=== PATIENT | female | born 1940 | race Caucasian/White ===

== ENCOUNTER → 2016-06-21 | Outpatient (CLI) | payer MEDICARE, OTHER ==
[~2016-06-21] MED LIST: AMLODIPINE BES2.5 MG PO; ASPIRIN EC81 MG PO; COLACE100 MG PO; COMBIVENT RESPIM4 GM INH; COZAAR50 MG PO; DECADRON4 MG PO; DILANTIN100 MG; DILANTIN100 MG PO; DILTIAZEM 24HR180 MG PO; DUONEB INH; EFFEXOR75 MG PO; FLONASE 50 MCG/16 GM NOSE; IMDUR30 MG PO; LASIX20 MG PO; LIPITOR20 M1 PO; LOVENOX 6060 MG/0.6 SUB-Q; MEGACE SUSP40 MG/ML PO; NITROSTAT0.4 MG SL; NORCO 5-325 MG1 TAB PO; ONDANSETRON ODT8 MG PO; OXYGEN M-15 INH; PLAVIX75 MG PO; PRILOSEC20 MG PO; PRINIVIL (ZESTRI5 MG PO; PROTONIX40 MG PO; REGLAN5 MG PO; TRANSDERM SCOP1.5 MG TRANS; TYLENOL325 MG PO; ULTRAM50 MG PO
== END | disposition disaster alternative care site (69) ==
LOC: GRAD 09:51
DX: R26.9 Unspecified abnormalities of gait and mobility (principal); R20.0 Anesthesia of skin; R53.1 Weakness; Z85.3 Personal history of malignant neoplasm of breast; K76.0 Fatty (change of) liver, not elsewhere classified; C78.7 Secondary malignant neoplasm of liver and intrahepatic bile duct; Z98.890 Other specified postprocedural states
CPT/HCPCS: Q9967

== ENCOUNTER 2016-06-28 04:53 | Inpatient (IN) | payer MEDICARE, OTHER ==
[~2016-06-28] VITALS: Ht 157.5 cm; Wt 64.0 kg
--- NOTE | ~2016-06-28 | ER ---
PATIENT'S NAME: DEZ SALDAÑA [facility] AGE: 75 Y [address] ROOM: [address] [place], [place] [address] LOCATION: [facility] ADMIT DATE: 06/28/2016 ER/Outpatient Report DISCHARGE DATE: FAMILY PHYSICIAN: Ang Dickens MD ATTENDING PHYSICIAN: Ang Dickens Admission time and date documented on the medical record. I saw the patient at 0455 hours. CHIEF COMPLAINT: Acute seizure activity first-time seizure; history of metastatic breast cancer to liver, lungs, brain. HISTORY OF PRESENT ILLNESS: The patient is a 75-year-old female who got up to the bathroom this morning about an hour prior to admission into the emergency room and had acute onset of seizure activity. Initially had some jerking of her right arm that turned into tonic-clonic activity of all 4 extremities. 911 EMS crew was dispatched. They brought the patient into the emergency room for evaluation by ambulance. On arrival, the patient was actively seizing. She was given Ativan 1 mg IV followed by repeat dose of 1 mg Ativan IV. We did go ahead and order some Dilantin 1000 mg IV for loading dose for her seizure activity. Seizure is most likely secondary to her metastatic lesions in her brain from her breast cancer. The patient was found to have metastatic brain lesions on scan. She was initially started on dexamethasone 4 mg 4 times a day and remains on this. She is scheduled to do radiation therapy of the brain starting today. She has undergone radiation therapy and chemotherapy for metastatic disease to her lungs and liver from her breast cancer. The patient had a partial mastectomy and lumpectomy of the left breast lesion that was adenocarcinoma. No recent coughs, colds, flus, fever, chills or sweats. Did not feel good all day yesterday and also had some severe headache throughout the day. She had some nausea with vomiting. No diarrhea. No cough or respiratory distress. No abdominal pain. No urinary symptoms. No history of CVA, TIA, or previous seizure disorder. No endocrine problems. No psych issues. She was a little bit unsteady on her feet yesterday, lightheaded and dizzy. No syncope or near syncope. No fall or trauma. As stated above, she did have a generalized headache. No eyes, ears, nose, throat, neck, or spine pain. HOME MEDICATIONS: See attached medication list. ALLERGIES: NONE. SOCIAL HISTORY: PATIENT'S NAME: DEZ SALDAÑA [facility] AGE: 75 Y [address] ROOM: [id number] [place], [place] [address] LOCATION: [facility] ADMIT DATE: 06/28/2016 ER/Outpatient Report DISCHARGE DATE: FAMILY PHYSICIAN: Ang Dickens MD ATTENDING PHYSICIAN: Ang Dickens Nonsmoker since 2007. Nondrinker. 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 OPERATIONS: Left breast partial mastectomy, lumpectomy, lung resection, cardiac catheterization, femoral-popliteal bypass bilaterally x2, radiation therapy, chemotherapy. REVIEW OF SYSTEMS: All systems reviewed by me are negative with the exception of those discussed in the history of present illness. PHYSICAL EXAMINATION: VITAL SIGNS: Temperature 97.9 tympanic, pulse 154 regular, respirations 36, blood pressure 207/103, O2 saturation on 4 L of oxygen per nasal cannula was 99%. HEAD: Normocephalic. EYES EARS, NOSE, AND THROAT: Clear. Mucous membranes moist. NECK: Negative. LUNGS: Clear. Good air flow. No rales, rhonchi, or wheezes. HEART: Regular. Pulses are palpable. ABDOMEN: Soft, nontender. Good bowel tones. No organomegaly or abnormal mass palpable. EXTREMITIES: The patient had a little twitching in her right arm, but no peripheral edema, cyanosis, or deformity. NEURO: The patient is a little bit postictal. No lateralizing signs. LABORATORY DATA: Lactate was 10.4, white count was [address], 88 segs, 5 lymphs, 5 monos, hemoglobin 15.5, hematocrit 44.6, platelet count 128,000. CMS, CRP, procalcitonin, CPK, CK-MB, troponin, PT, PTT and prolactin are pending. IMAGING: CT scan of the head was obtained, results pending. EMERGENCY DEPARTMENT COURSE: Again, I did give the patient Dilantin 1000 mg IV loading dose. I also gave the patient a total of 2 mg of Ativan IV. Discussed. IMPRESSION: PATIENT'S NAME: PIOTR, SUSIE [facility] AGE: 75 Y [address] ROOM: [address] [address] LOCATION: [facility] ADMIT DATE: 06/28/2016 ER/Outpatient Report DISCHARGE DATE: FAMILY PHYSICIAN: Ang Dickens MD ATTENDING PHYSICIAN: Ang Dickens 1. Acute seizure activity first time, etiology uncertain, but most likely secondary to metastatic disease of the brain from left breast cancer. The patient has known METS to the brain, liver and lungs. 2. History of atherosclerotic ischemic heart disease with coronary artery disease. 3. History of peripheral vascular disease. 4. History of hypertension. 5. History of dyslipidemia. 6. History of chronic obstructive pulmonary disease. PLAN: I did discuss the patient with Dr. Bailey for Dr. Dickens. We will admit the patient to neurotrauma for further evaluation and treatment. As stated above, the patient is scheduled to have her first radiation therapy to the brain today. Again, we will initiate antiseizure medication Dilantin IV. Accumulated critical care time 30 minutes. MD WEI PRATER/modl /[id number] d: 06/28/16 0637 t: 06/28/16 1815, OUTPATIENT REPORT
--- NOTE | ~2016-06-28 | DS ---
PATIENT'S NAME: DEZ SALDAÑA [facility] AGE: 75 Y [address] ROOM: [address] [place], [place] [address] LOCATION: [facility] ADMIT DATE: 06/28/2016 Discharge Summary DISCHARGE DATE: 07/02/2016 FAMILY PHYSICIAN: Ang Dickens MD ATTENDING PHYSICIAN: Ang Dickens BRIEF HISTORY: This is a 75-year-old white female with known metastatic disease likely from breast to liver, lung, and mets to the brain. Status post chemotherapy and radiation. She is admitted with new-onset seizures. She was admitted to the hospital after new-onset seizures. She has been having increasing headache and right-sided weakness with some ataxia. She was admitted to the hospital by Dr. Bailey and had consultation with Oncology. She was started on IV Decadron as well as Dilantin by Neurology. Radiation Therapy was begun as well. Over next couple of days, she started to improve. Seizures were well-controlled. Her blood pressure was elevated however. Adjustment to her medications were undertaken. Dr. Jones was consulted for possible inpatient rehab stay. DuoNeb was used for her lung disease. Because of elevated blood sugars and the Decadron, sliding-scale insulin was began. She subsequently was able to be discharged to inpatient rehab on 07/02/2016. DISCHARGE DIAGNOSES: Include breast cancer with widespread mets including brain with new-onset seizure. She will be transferred to rehab and cared for by Dr. Jones and continued with radiation therapy. Dr. Jones, Florencia, and myself to follow. ANG DICKENS MD TLP/modl /[id number] d: 07/27/16608 t: 08/19/16 0834, DISCHARGE SUMMARY
--- NOTE | ~2016-06-28 | CON ---
PATIENT'S NAME: DEZ SALDAÑA [facility] AGE: 75 Y [address] ROOM: [address] [place], [place] [address] LOCATION: T ADMIT DATE: 06/28/2016 Consultation DISCHARGE DATE: FAMILY PHYSICIAN: Ang Dickens MD ATTENDING PHYSICIAN: Ang Dickens DATE OF CONSULTATION: 06/28/2016 REFERRING PHYSICIAN: Madhavi Don MD, PhD TIME: 8:00 p.m. HISTORY OF PRESENT ILLNESS: This is a 75-year-old female patient, who came into the emergency room early this morning. She has an unfortunate history of metastatic breast cancer to liver and lung and now recently diagnosed in March of this year to the brain where she was noted to have multiple brain lesions. She never had a seizure until last night when she went to the bathroom and started having some right arm jerking followed by tonic-clonic seizure activity. She came to the emergency room actively seizing and was given a benzodiazepine and upon my request, I ordered for load of Dilantin 1 g followed by 100 mg 3 times a day. The patient is currently seen on the neuro trauma unit and has not had any active seizures. She is speaking to me and following all commands. Her family was in the room and they say that she has been doing well during the course of the day. The patient herself says that she does have a fairly severe headache that has been ongoing for about 2 days. She is noted to have some weakness in her right upper extremity unable to give me full power, but she is able to elevate her arm above the bed with some noted pronation of the right upper extremity. Her speech was clear, though her says that at time she does have some slurring of her speech. PAST MEDICAL HISTORY: As noted, she does have a diagnosis of a left breast cancer that initially started as an infiltrating ductal carcinoma in June of 2015 upon a breast lumpectomy. She is status post radiation and chemotherapy that was completed in February 2016. A brain scan was performed in March 2016, which was done due to the patient having some progressive weakness in the right upper extremity. Initially, it showed evidence for metastatic lesions and she was started on Decadron at that time. She had been doing fairly well, but over the past 2 weeks, she has been having some more weakness than usual. Her other prior medical history includes hypertension, non-small cell lung cancer diagnosed from a right upper lobe biopsy and status post resection, this was diagnosed initially back in 2007. She was a heavy smoker of 2 packs a day for nearly 50 years. She quit upon her diagnosis in 2007. PATIENT'S NAME: DEZ SALDAÑA [facility] AGE: 75 Y [address] ROOM: [place] [address] LOCATION: [facility] ADMIT DATE: 06/28/2016 Consultation DISCHARGE DATE: FAMILY PHYSICIAN: Ang Dickens MD ATTENDING PHYSICIAN: Ang Dickens PAST SURGICAL HISTORY: Included thoracotomy with resection of the right upper lobe back in 2007, partial hysterectomy, tonsillectomy, appendectomy, and left core breast biopsy in June 2015. CURRENT HOME MEDICATIONS: Included: 1. Aspirin 81 mg daily. 2. Decadron was being given at 4 mg 4 times a day. 3. Plavix 75 mg daily. 4. Prilosec 20 mg daily. ALLERGIES: NO KNOWN DRUG ALLERGIES. SOCIAL HISTORY: She was a heavy smoker of 2 packs a day x50 years, then she quit in 2007. She is and does not work presently. REVIEW OF SYSTEMS: Neurologically, the patient presents with some progressive weakness over the past 3 months of right upper extremity weakness. She presented with focal right on arm jerking followed by generalized seizure last evening. Taken to the emergency room and loaded on antiepileptic medications. She is currently doing fairly well, but does have some noted weakness in the right upper extremity. She also is complaining about a headache, though she continues to receive Tylenol p.r.n. for her pain. Oncologically, as noted history of metastatic cancer to liver and to the brain and a history of lung cancer. LABORATORY DATA: Laboratories are consistent are showing elevations in liver enzymes to 169 AST, 258 ALT, and alkaline phosphatase is normal at 117. Basic metabolic panel essentially within normal limits. There is a slight elevation in white count to 11.4. CPKs are within normal limits. PHYSICAL EXAMINATION: GENERAL: The patient is alert and oriented. I did not appreciate any aphasia. Her speech is clear. I do not hear any slurring of her speech. VITAL SIGNS: Pulse of 91 and regular, respiratory rate 24, blood pressure 121/59, and temperature is 97.8. Her weight is 63 kg. CRANIAL NERVES: Pupils equal and reactive to light and accommodation. Extraocular ocular muscles are intact. There is normal facial symmetry and sensation. NECK: Supple on flexion and extension. Her power in the right upper extremity is 4/5 grade proximal and distal muscles equally with diminished PATIENT'S NAME: DEZ SALDAÑA [facility] AGE: 75 Y [address] ROOM: [place] [address] LOCATION: [facility] ADMIT DATE: 06/28/2016 Consultation DISCHARGE DATE: FAMILY PHYSICIAN: Ang Dickens MD ATTENDING PHYSICIAN: Ang Dickens hand loader helper. Left upper extremity and left lower extremity is of normal power. There is normal bulk and tone of all the limbs. Reflexes are slightly diminished in the right upper extremity at +1 at the biceps and triceps. Patellar reflexes, ankle jerk reflexes are symmetric in the lower extremities at +1. Her gait was not assessed. Currently, the sensory exam is grossly intact. She does not have any sensory neglect. IMPRESSION: Ms. Saldaña presents with a new onset of seizures. She has known metastatic lesions in her brain. Ever since diagnosis of metastatic lesions to the brain in March, she has been on Decadron since that time. The lesions on CAT scan do remain stable. In fact, there is some slight diminishment in the swelling of the largest left frontal region, which has the most edema. The exact the etiology for her having a seizure at this time and not prior months is unclear, but nonetheless, the patient would require antiseizure medications here on out. We will get a Dilantin level in the morning and likely have to follow her a bit closer over the course of the week with a Dilantin level. I chose Dilantin based upon her easy ability to regulate its levels and though the patient does have metastatic lesions, Dilantin is metabolized in the liver, it is a safe medication to use here on out. She seems to be tolerating the medication fine. The biggest issue for her Decadron, which should be increased a bit due to her level of her headache complaints, let us just give her one dose of 10 mg of the Decadron and put her dosing at 6 mg 3 times a day for now. We can see if this helps with her headache and may even help with the weakness of the right upper extremity. The weakness of the right upper extremity is clearly related to the mass effect of the left frontal hemisphere. Due to possibility of a diuretic effect of the Decadron, this may be causing her some weakness with loss of fluids, thus it is important to keep her fluid intake up and I will place her on normal saline over the course of the overnight into the day at 125 mg of normal saline per hour. I do want to thank Dr. Bailey for allowing me to participate in the care of Ms. Dez Saldaña and the discussion too, and then possibly to diminish the dosing thereafter. Decision for the patient to be discharged home will certainly be based upon her toleration. MD ALEX HWANG/deangelol /[id number] d: 06/29/16 0353 t: 07/13/16 1343, CONSULTATION REPORT
--- NOTE | ~2016-06-28 | HP ---
PATIENT'S NAME: DEZ SALDAÑA [facility] AGE: 75 Y [address] ROOM: [address] [place], [place] [address] LOCATION: [facility] ADMIT DATE: 06/28/2016 History & Physical DISCHARGE DATE: FAMILY PHYSICIAN: Ang Dickens MD ATTENDING PHYSICIAN: Ang Dickens DATE OF SERVICE: ADMISSION DIAGNOSES: 1. Metastatic breast cancer to liver, lung, and recent diagnosis of mets to brain. 2. New onset seizure activity. HISTORY OF PRESENT ILLNESS: The patient is a 75-year-old female, who normally sees Dr. Ang Dickens. She was diagnosed with left breast cancer (stage IA, pT1c, pN0, M0 infiltrating ductal carcinoma of the left breast, ER negative, MA negative, and HER-2/gordon negative) in June 2015. She had a left breast lumpectomy done. She had radiation done. Approximately 2 weeks after radiation was done, she developed right upper quadrant pain and was diagnosed with multiple hepatic metastasis and borderline prominent mediastinal lymph nodes. She completed chemo for that in February 2016. On March 29, 2016, a followup CT was done, showing multiple liver lesions with slight improvement. In June 2016, followup CT again showed that those were overall stable. 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 CT scan of the head was done and she was found to have multiple lesions in bilateral hemispheres of the brain as well as one in a thalamus measuring up to 3 cm. She was evaluated by Dr. Don and scheduled to start radiation therapy this afternoon. Last evening, around 4 a.m., she woke from sleep to go to the bathroom. She hollered for helping, her and daughter ran to her. They report that she was "out of it and shaking." They both assisted her to the bed and then called the ambulance. They brought her into the emergency room where she was found to have jerking of her right arm, which then led to tonic-clonic movements of all 4 extremities. Ativan as well as a loading dose of Dilantin was given in the emergency room. They deny that she has had any recent fevers or chills. Deny any nausea or vomiting. Deny any recent change to her bowel or bowel habits. They do note that she developed a very severe headache on Eliazar and then starting on Tuesday, she was increasingly sleepy. She does see a instructional media services technician, Dr. River at [facility]. She states that last week she had an evaluation by him and their understanding was PATIENT'S NAME: DEZ SALDAÑA [facility] AGE: 75 Y [address] ROOM: [place] [address] LOCATION: [facility] ADMIT DATE: 06/28/2016 History & Physical DISCHARGE DATE: FAMILY PHYSICIAN: Ang Dickens MD ATTENDING PHYSICIAN: Ang Dickens that he had recommended to discontinue all of her medications. There was apparently a miscommunication and she was supposed to continue with the Plavix every other day. This was clarified this past Tuesday, so she has taken at Tuesday and then Tuesday. She has also been taking her isosorbide intermittently per his recommendations. PAST MEDICAL HISTORY: Hypertension; former smoker (2 packs per day for 49 years, quit in 2007); atherosclerotic vessel disease; coronary artery disease; peripheral vascular disease; hyperlipidemia; COPD; non-small cell cancer, right upper lobe of the lung; T1 lesion in 2007, status post wedge resection; and history of cervical cancer status post partial hysterectomy. PAST SURGICAL HISTORY: Left breast lumpectomy in June 2015, thoracotomy with wedge resection of the right upper lobe in 2007, left hip biopsy in 2007, heart catheterization in March 2013 and July 2014, bilateral lower extremity bypass in 1999 and 2004, tonsillectomy, appendectomy, partial hysterectomy, balloon angioplasty in February 2015, bilateral cataract surgery in 2014, and left breast core needle biopsy in June 2015. MEDICATIONS: Have included; 1. Aspirin 81 mg a day. 2. Combivent 1 puff 4 times a day. 3. Decadron 4 mg 4 times a day. 4. Isosorbide mononitrate 30 mg 1 to 1.5 tablets daily. 5. Nitroglycerin sublingual p.r.n. 6. Prilosec 20 mg daily. 7. Plavix 75 mg a day. Again, she had not been taking any of the medications last week. They restarted her Plavix every other day starting this past Tuesday per direction from Dr. River. Therefore, since Tuesday, she has only been taking the Plavix every other day and the Decadron. ALLERGIES: NONE. FAMILY HISTORY: Father ; had stomach cancer, stroke, and hypertension. Mother , had brain cancer in 1981. A sister with a history of breast cancer. Two brothers with history of heart disease. SOCIAL HISTORY: PATIENT'S NAME: DEZ SALDAÑA [facility] AGE: 75 Y [address] ROOM: [place] [address] LOCATION: [facility] ADMIT DATE: 06/28/2016 History & Physical DISCHARGE DATE: FAMILY PHYSICIAN: Ang Dickens MD ATTENDING PHYSICIAN: Ang Dickens She is , retired. Frequent alcohol use. Heavy past smoker, 2 packs per day for 49 years, but quit in 2007. She is a G2, P2. PHYSICAL EXAMINATION: VITAL SIGNS: See nursing record for vital signs since admission to the floor. In the emergency room; pulse 154, respiratory rate 36, temperature 97.9, blood pressure 207/103, and O2 saturation 99% on room air, this was while actively seizing. Her most recent blood pressures in the 140s/80s. GENERAL: She is currently sleeping and sedated, lying on her left side in hospital bed. She does not arouse when I speak with her. She is unable to follow commands. HEART: Regular rate and rhythm without murmur. LUNGS: Clear to auscultation throughout. No crackles or wheezing noted. ABDOMEN: Obese, soft, nontender, and nondistended. No masses palpated. EXTREMITIES: No peripheral edema noted. SCDs are in place. LABORATORY DATA: Lactate 10.4. Prolactin 48.9. Procalcitonin 0.12. White blood cell count 11.4, hemoglobin 15.5, hematocrit 44.6, and platelets 128. Sodium 138, potassium 3.5, chloride 101, bicarb 15, BUN 26, and creatinine 1.2 with a GFR of 44. Alkaline phosphatase 117, AST 169, and ALT 258. CT scan of the head was reviewed by the [facility]. This was compared to previous CT from June 21, 2016. No hemorrhage was noted. Small decrease in amount of left frontal lobe vasogenic edema. The other areas of vasogenic edema were noted to be grossly stable secondary to metastatic lesions. ASSESSMENT AND PLAN: Metastatic breast cancer to liver and lung, and most recent diagnosis of metastases to bilateral hemispheres of brain. New onset first-time seizure around 4 o'clock this morning that involved tonic-clonic movements of all 4 extremities. In the emergency room, she was given Ativan, therefore she was quite sedated at the time of my exam. She was also started on a loading dose of Dilantin and then recommendations for an oral dose. She has been on Decadron since the brain metastases were diagnosed last week. She was supposed to start radiation treatment this afternoon. I have consulted Dr. Sharp. Will discuss with him recommendations for when and if she can do radiation and clarification on whether or not to continue with her Decadron and Plavix that she has prescribed by her instructional media services technician. She does have a borderline elevated white blood cell count of 11.4 and procalcitonin level is minimally elevated at 0.12. She is afebrile. Lactate 10.4. They do report she had a bit of a cough the last couple of days, complained of a very severe headache on Tuesday and then was increasingly sleepy Tuesday and Tuesday. It makes the most sense that her brain metastasis is because of these symptoms, but I also want to rule out infectious possibility. I will get a UA, urine culture, blood culture, and a single view chest x-ray. We will have her PATIENT'S NAME: DEZ SALDAÑA [facility] AGE: 75 Y [address] ROOM: [place] [address] LOCATION: [facility] ADMIT DATE: 06/28/2016 History & Physical DISCHARGE DATE: FAMILY PHYSICIAN: Ang Dickens MD ATTENDING PHYSICIAN: Ang Dickens n.p.o. for now while she is sedated. When she is awake and alert, she is allowed to eat ad radha. MD ROSS ARMENTA/linn /[id number] D: [id number] T: [id number] HISTORY & PHYSICAL
--- NOTE | ~2016-06-28 | CON ---
PATIENT'S NAME: DEZ SALDAÑA [facility] AGE: 75 Y [address] ROOM: [place] [address] LOCATION: [facility] ADMIT DATE: 06/28/2016 Consultation DISCHARGE DATE: FAMILY PHYSICIAN: Ang Dickens MD ATTENDING PHYSICIAN: Ang Dickens REFERRING PHYSICIAN: Madhavi Don MD, PhD This is a consult for Dr. Ang Dickens. This pleasant 75-year-old lady is referred for rehab, GIRP evaluation. She was admitted on 06/28/2016 with sudden onset of seizure disorder at home and she was admitted through emergency room. She has history of metastatic breast cancer to the liver and lung and recently found to brain, bilateral multiple lesions. She also has slight right-sided weakness and was having some difficulty with speech with slurring. 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 She never had a seizure disorder before. She complained of headaches recently. Now, no headaches that she can describe. She has some difficulty with memory, however, she can comprehend and express and she feels that she is a little bit angry. Other than that, she is a very nice lady. No visual cut or neglect. No facial droop. She can swallow without difficulty. Her voice is clear and not wet. Tongue and soft palate are moving symmetrical. She has some difficulty with strength, which is less at the present time, right upper and lower extremity, right upper more involved. She ambulates with a walker up to 80 to 100 feet and veers to the right and is at risk of falling. Vitals at the present time stable. MEDICATIONS: She is on the following medications. 1. Norvasc. 2. Cozaar. 3. Colace. 4. Flonase. PATIENT'S NAME: DEZ SALDAÑA [facility] AGE: 75 Y [address] ROOM: [place] [address] LOCATION: [facility] ADMIT DATE: 06/28/2016 Consultation DISCHARGE DATE: FAMILY PHYSICIAN: Ang Dickens MD ATTENDING PHYSICIAN: Potthoff,Ang L 5. MOM. 6. [place] nasal spray. 7. Albuterol sulfate. 8. Insulin NovoLog, mild. 9. Glucagon. 10. Glucose. 11. Dextrose. 12. Protonix. 13. Aspirin. 14. Lovenox. 15. Imdur. 16. [place]demona. 17. Decadron. 18. Dilantin. 19. Tylenol. 20. NaCl 0.9%. 21. Zofran. 22. . She has been initiated on PT/OT. At the present time, I will add speech therapy to her therapies also. I feel this lady will benefit from intensive rehabilitation of about 10 to 14 days aiming to discharge home at modified [place]. Follow on outpatient basis. All the above was explained to her, her , and her daughter. They verbalized understanding and agreement. MD REA HUI/modl /[id number] d: 07/01/16 1827 t: 07/02/16 1556, CONSULTATION REPORT
[~2016-06-28 04:53] MED LIST changes: -AMLODIPINE BES2.5 MG PO; -COLACE100 MG PO; -COZAAR50 MG PO; -DECADRON4 MG PO; -DILANTIN100 MG; -DILANTIN100 MG PO; -DUONEB INH; -EFFEXOR75 MG PO; -FLONASE 50 MCG/16 GM NOSE; -LASIX20 MG PO; -LOVENOX 6060 MG/0.6 SUB-Q; -MEGACE SUSP40 MG/ML PO; -ONDANSETRON ODT8 MG PO; -OXYGEN M-15 INH; -PRILOSEC20 MG PO; -PROTONIX40 MG PO; -REGLAN5 MG PO; -TRANSDERM SCOP1.5 MG TRANS; -TYLENOL325 MG PO
[2016-06-28 05:31] LABS: BASOPHIL % 0.4 %; HEMATOCRIT 44.6 % (33.0-46.0); HEMOGLOBIN 15.5 g/dL (10.0-15.0); IMMATURE GRANULOCYTE # 0.3 K/uL (0.0-0.3); IMMATURE GRANULOCYTE % 2.5 %; LYMPHOCYTE # 0.5 K/uL (0.8-4.0); LYMPHOCYTE % 4.6 %; MCHC 34.8 gm/dL (32.0-36.5); MCV 95.1 fl (83.0-98.0); MONOCYTE # 0.6 K/uL (0.0-1.0); MONOCYTE % 4.8 %; MPV 9.2 fl (9.4-12.4); NEUTROPHIL % 87.7 %; NRBC % 0 /100WBC (0-0.00); PLATELET COUNT 128 K/uL (150-450); RBC 4.69 M/uL (3.50-5.50); RDW-CV 11.9 % (11.9-14.6); WBC 11.4 K/uL (4.0-11.0)
[2016-06-28 05:47] LABS: INR - (THERAPEUTIC) 0.92 (0.92-1.07); PROTIME 9.6 SECONDS (9.8-11.4); PTT 21 SECONDS (25-32)
[2016-06-28 05:53] LABS: ALBUMIN 3.3 gm/dL (3.5-5.0); ALK PHOS 117 IU/L (33-138); ALT 258 IU/L (12-78); AST 169 IU/L (10-40); BLOOD UREA NITROGEN 26 mg/dL (6-24); CALCIUM 8.8 mg/dL (8.5-10.5); CHLORIDE 101 mMol/L (96-110); CPK 39 IU/L (21-215); CREATININE 1.2 mg/dL (0.5-1.1); ESTIMATED GFR (MDRD EQUATION) 44; POTASSIUM 3.5 mMol/L (3.7-5.1); SODIUM 138 mMol/L (135-145); TOTAL BILIRUBIN 2.2 mg/dL (0.0-1.5)
[2016-06-28 05:58] LABS: ANION GAP 25.5 (10.0-19.0); CO2 15 mMol/L (22-32)
--- NOTE | 2016-06-28 07:00 | NUR ---
admitted from ER. family @ bedside, hx. Breast Cancer- mets to liver/brain, witnessed seizure at home this morning, and witnessed seizure in ER. Ativan 1mg x2 given in ER, very drowsy upon arrival. R)hand saline lock, R)chest portacath saline lock, seizure pads on bed.
[2016-06-28] MEDS ORDERED: PRILOSEC20 MG PO (07:19)
[2016-06-28] MEDS ORDERED: DECADRON4 MG PO (07:19)
[2016-06-28 10:58] LABS: BILIRUBIN URINE NEGATIVE (NEGATIVE); BLOOD URINE 10 /UL (NEGATIVE); COLOR URINE YELLOW (YELLOW); GLUCOSE URINE NEGATIVE (NEGATIVE); KETONE URINE NEGATIVE (NEGATIVE); LEUKOCYTES URINE NEGATIVE /UL (NEGATIVE); NITRITE URINE NEGATIVE (NEGATIVE); PROTEIN URINE 30 mg/dL (NEGATIVE); TURBIDITY URINE CLEAR (CLEAR); UROBILINOGEN URINE NORMAL (NORMAL)
[2016-06-28 11:09] LABS: BACTERIA URINE NEGATIVE (NEGATIVE); EPITHELIAL URINE NEGATIVE #/HPF (NEGATIVE); RBC URINE RARE #/HPF (NEGATIVE); WBC URINE NEGATIVE #/HPF (NEGATIVE)
--- NOTE | 2016-06-28 14:23 | NUR ---
ULTRA HIGH FALL RISK Significant Event: A/O X3, cooperative with cares, moves all extremities independantly & to command, voids per bedpan, lungs clear, weaning off O2 that was started in ER, R)hand saline lock, R)chest portacath saline lock, tylenol @ 1210, poor appetite as at home, family @ bedside. to Cancer center for 1st Radiation Therapy today. no seizures, seizure pads on bed. Follow up: consult
--- NOTE | 2016-06-28 14:31 | NUR ---
1430 Stopped by to see but her RN Aleja tells me that she is at radiation therapy so she is not in her room at this time. I will plan to touch base with her and her family tomorrow to discuss discharge plans and needs. CM to continue to follow and assist.
--- NOTE | 2016-06-29 01:11 | NUR ---
Significant Event: Patient A/O x 3. perrla. Denies N/T. Headache pain, relieved with ice and tylenol. Very weak strength throughout, right side weaker than left. Lungs clear on room air. Tachypneic. Htn at times. Afebrile. Continent of bladder. No bm this shift. Voiding per bedpan this shift. Feels weak. PIV to right hand saline locked. Port to right chest running NS at 125 ml/hr. Bilateral pneumatics intact. Dr. Sharp saw patient this shift. Daughter at bedside. Follow up: Continue to monitor. Pain management.
--- NOTE | 2016-06-29 12:24 | NUR ---
Introduced self and CM role to patient and family members at bedside. Patient lives with [place] miles outside of town as identified by . She is looking into getting a FWW to assist her at home and were curious about the best way to go about getting one. I told them that I would go grab the paper with the local DME locations in [facility] [address] to give to them. I went and talked with SOPHIE Ernst and she helped fill out a FWW script to put on her chart. I went back into the room and gave pt's the list of DME locations and told them about the script for the FWW. No other needs or concerns at this time regarding discharge. Wrote CM name on markerboard and told them to contact us if any other concerns arise. Will continue to follow and provide assistance as needed. Plan home. CM Decker Operator TH.
--- NOTE | 2016-06-29 17:23 | NUR ---
Significant Event:PT IS AAOX3. RIGHT SIDE IS SLIGHTLY WEAKER. NO C/O NUMBNESS OR TINGLING. RADIATION TODAY. CLEAR LUNG SOUNDS ACTIVE BS. NO BM TODAY. R) CHEST PORT RUNNING. 2A GB WALKER. NORCO GIVEN AT 1207. RELIEF NOTED. Follow up:OT ORDER?
--- NOTE | 2016-06-29 22:57 | NUR ---
Significant Event: Patient A/O x 3. Perrla. Denies N/T. Moves all extremities spontaneously and to command. Right side weaker than left. Bowel sounds active. No bm this shift. Voids per bedside commode. Ambulates 1 assist, GB/walker. SOB with exertion. Audible wheeze and SOB with exertion. Expiratory wheeze in bases, on room air. Slightly HTN with SBPs in 140s. Poor appetite. Radiation for CA. SCDs intact. Daughter very helpful, at bedside. Follow up: PT/OT to work with patient tomorrow.
--- NOTE | 2016-06-30 12:11 | NUR ---
Met with and her while she was at cancer center for radiation. asked about walker options other than waiting for medicare to approve. Gave him address and phone number for [facility] and let him know that they have medical equipment that can be checked out. Patient was also given aquafor for head. No other questions or concerns at this time. Will follow.
--- NOTE | 2016-06-30 13:03 | NUR ---
Significant Event: Patient A/O x3. Impulsive at times when needing to use the restroom. R) hand grasp weak. Denies N/T. Follows commands. Moves everything spontaneously. VSS. Hypertensive at start of shift. SBP 130-140s for follow up checks. No edema noted. Room air with sats in the mid 90s. LS clear and diminished. Wet non productive cough. Short of breath with activity. BS active X4. Voids per toilet. Takes pills whole with water. Generalized bruising. R) chest port infusing NS at 125 ml/hr. 1 asssit with gaitbelt and walker. [place] given this AM for pain. Radiation this AM. Pleasant and cooperative with cares. Follow up:
--- NOTE | 2016-06-30 13:45 | NUR ---
Reviewed patient's chart and [facility] board. I noticed that GIRP was listed by pt's name. I called SOPHIE Dobbs, whom is watching the patient for the day as well, if she knew anything about this. She stated she didn't but to check the chart to see if there had been a [facility] consult. There was not one. I talked with SOPHIE Oliver and she filled me in that at [facility] it was discussed that PT thinks that pt should go to [facility]. I called Sharon at [facility] around 1100 and left her a voicemail about patient to see if she knew about her. Went in to talk with pt and pt's after leaving voicemail to find out if GIRP is an option they would like to pursue or if they would just like to go home, which was their plan when I talked to them yesterday. They stated that they would like to go to [facility], they were already aware that there might be bed availabilitly issues and I informed them that I will leave a stickynote on pt's chart to request a [facility] consult to assess her. Pt's also brought up that he talked with a friend whom told them to go to [employer] to get loaned a walker; and thats what he is going to go do before they go home. No other needs or concerns at this time. Will wait to hear more about the option of GIRP. SOPHIE food and beverage intern TH.
--- NOTE | 2016-07-01 05:49 | NUR ---
Significant Event:Patient A/O x 3. perrla. Denies N/T. Slight pressured headache at times. Moves all extremities spontaneously and to command. Right side weaker than left. HTN at times, SBPS 140S-160S. Room air. Wet cough. Bowels active, no bm this shift. Voided per bedside commode this shift. Transfers 1 assist. Port to right chest, accessed. Tylenol given last at 0320. [place] last given at 0455 x 1 tab. Follow up: GIRP?
--- NOTE | 2016-07-01 12:21 | NUR ---
SOPHIE Ernst informed me that Sharon at [facility] called her around 1030 that they will accept pt tomorrow at 900. 1045 Went down to U and talked with Sujata, she had already started the transfer packet. I made sure orders were on her chart and put a sticky note on it with plan. I called [facility] to text Dr. Dickens to call me. He called me shortly after, I informed him of pt going to [facility] tomorrow and that orders were on the chart. Went in and told pt and of plan. They voiced understanding and were okay with it. Plan for [facility] tomorrow morning at 900. SOPHIE Employment Security Officer TH.
--- NOTE | 2016-07-01 17:27 | NUR ---
Significant Event: A/O x 3. SBP 190's at beginning of shift, 140's at 1500 assessment. NSR. Lungs clear with expiratory wheeze, RA. Patient denies SOB. 1A walker. Mod BM today. R) chest port, SL. Radiation today. Last chemo in February. ACCU checks ACHS, no treatable blood sugars today. Follow up: GIRP tomorrow 0900.
--- NOTE | 2016-07-02 03:49 | NUR ---
Significant Event: Patient A/O x3. Did not get much sleep. Impulsive at times getting out of bed setting off bed alarm. Uses call light at times. VSS. Remains on room air. No c/o pain. Voiding per commode/toilet with 1 assist. Denies numbness/tingling. Generalized weakness throughout. Follow up: GIRP at 0900.
--- NOTE | 2016-07-02 09:25 | NUR ---
Pt is alert and oriented. She is one assist with gait belt and walker. She has generalized weakness with Rt side slightly weaker than left per pt report. Pt has been SOB at times but denies this morning. She is also slightly unsteady. She can be impulsive at times, but not this morning. She hasn't had any seizure activity since admit per previous shift report. Pt denies any numbness, tingling, dizziness and CSM WNL. Pt up to Bathroom and up in chair this morning. She complains of slight pressure headache today but refused analgesic. She ate all breakfast. She has been in Sinus rhythm. She has accessed Rt chest port. She had radiation yesterday. Accucheck this morning was 78. She is on AC and Hs presumably due to medications she is on. Pt lung sounds are clear with no expiratory wheeze at this time. Dr Dickens has been adjusting pt meds for hypertension. last one was 145/63. BM yesterday. Pt voids without problems. Pt had chemotherapy last in february.
== END 2016-07-02 09:58 | DRG 54 ==
LOC: GMED 04:53 → GNTU 05:51
PROVIDERS: Emergency Medicine; ADMIT Family Medicine
PROC: D0Y07ZZ Contact Radiation of Brain (ICD-10-PCS; principal; 2016-06-28)
DX: C79.31 Secondary malignant neoplasm of brain (principal); G93.6 Cerebral edema; C78.00 Secondary malignant neoplasm of unspecified lung; C78.7 Secondary malignant neoplasm of liver and intrahepatic bile duct; G81.91 Hemiplegia, unspecified affecting right dominant side; C50.912 Malignant neoplasm of unspecified site of left female breast; J44.9 Chronic obstructive pulmonary disease, unspecified; G93.9 Disorder of brain, unspecified; I10 Essential (primary) hypertension; I73.9 Peripheral vascular disease, unspecified; Z86.79 Personal history of other diseases of the circulatory system; Z87.891 Personal history of nicotine dependence; R47.81 Slurred speech; G40.409 Other generalized epilepsy and epileptic syndromes, not intractable, without status epilepticus; R41.3 Other amnesia
CPT/HCPCS: C9113; J1100; J1165; J1650; J2060; J3360; J7030

== ENCOUNTER → 2016-06-28 | Outpatient (CLI) | payer MEDICARE, OTHER | END | disposition disaster alternative care site (69) | LOC: GAMB 04:27 | DX: R56.9 Unspecified convulsions (principal); Z79.82 Long term (current) use of aspirin; Z79.899 Other long term (current) drug therapy | CPT/HCPCS: A0422; A0425; A0427 ==

== ENCOUNTER 2016-07-02 10:10 | Inpatient (IN) | payer MEDICARE, OTHER ==
[~2016-07-02] VITALS: Ht 157.5 cm; Wt 62.4 kg
--- NOTE | ~2016-07-02 | CON ---
PATIENT'S NAME: DEZ SALDAÑA [facility] AGE: 75 Y [address] ROOM: [address] [place], [place] [address] LOCATION: GIRP ADMIT DATE: 07/02/2016 Consultation DISCHARGE DATE: 07/08/2016 FAMILY PHYSICIAN: Ang Dickens MD ATTENDING PHYSICIAN: Lokesh Chadwick DATE OF CONSULTATION: 07/06/2016 REFERRING PHYSICIAN: Madhavi Don MD, PhD Team members reporting include Dr. Chadwick; Sharon Jara, high school social studies tutor; Anisha Carmichael RN; Bonita Perez, PT; Rosalina Smith, OT; Joann Osuna, Speech Therapy; Khadijah Jeffers, therapeutic rec; and Sister Melanie Keller, Pastoral Care. CURRENT STATUS: Dipti Hernandez is a 75-year-old woman, who admitted to our inpatient rehab unit on July 02, 2016. The patient came into [facility] status post seizures. They did find new lesions in her brain. She does have a prior history of metastatic breast cancer to the liver and lung and now the brain too. The patient does have a history of gastric reflux disease, coronary artery disease with myocardial infarction, hypertension, and chronic obstructive pulmonary disease. Status post wedge resection of the upper lobe of the right lung. The patient is continent of bowel and bladder. Skin is good. No pain issues. The patient can complete supine to sit transfers independently, sit to stand and bed to chair transfers independently. She can walk 300 feet with no assistive device at standby assistance. She does have path deviations and poor proprioception. She can climb 8 stairs with 2 railings at modified [place]. She has met 5/9 long-term PT goals. The patient can dress her upper and lower body at standby; grooming and bathing standby, toilet transfer standby, shower transfers contact guard assistance, and toileting standby assistance. She can feed herself at standby; home management tasks, standby. The patient has met 1/13 long-term OT goals set at modified independence. Comprehension is modified independence. Language and expression, independent; memory standby; and problem solving, standby. The patient has been very open to pastoral care. DISCHARGE PLAN: The patient is receiving 3 hours of PT, OT, and speech Tuesday through Tuesday. The patient has daily rehab, nursing, and physiatry involvement as well as therapeutic recreational services 4 days per week. The patient has shown functional improvement and is progressing. Please see her plan of care for specific goals. Plan is for patient to discharge on July 08, 2016 with outpatient therapy services. PATIENT'S NAME: DEZ SALDAÑA [facility] AGE: 75 Y [address] ROOM: [place] [address] LOCATION: [facility] ADMIT DATE: 07/02/2016 Consultation DISCHARGE DATE: 07/08/2016 FAMILY PHYSICIAN: Ang Dickens MD ATTENDING PHYSICIAN: Lokesh Chadwick SHARON JARA FOR LOKESH CHADWICK MD TD/modl /[id number] d: 07/16/16 1929 t: 08/09/16 1401, CONSULTATION REPORT
--- NOTE | ~2016-07-02 | DS ---
PATIENT'S NAME: DEZ SALDAÑA [facility] AGE: 75 Y [address] ROOM: [address] [place], [place] [address] LOCATION: [facility] ADMIT DATE: 07/02/2016 Discharge Summary DISCHARGE DATE: FAMILY PHYSICIAN: Ang Dickens MD ATTENDING PHYSICIAN: Lokesh Jones This 75-year-old lady was admitted to Rehab Unit at [facility] on 07/02/2016, is discharged to home on 07/08. 1. Unstable gait. 2. Dependent activities of daily self-care. 3. Status post multiple brain metastases, primary CA breast. 4. She has also metastasis to liver, lung and recently found metastasis to the brain, leading to unstable gait and dependent activities of daily self-care. She was on intensive rehab, doing well, alert, oriented to this present time. Vitals are as follows: Blood pressure 132/74, temperature 97.9, pulse 86, and respirations 16. Accu-Cheks are 85 and stable. 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 She is at the present time on the following medications: 1. Norvasc 2.5 mg p.o. daily. 2. Aspirin 81 mg p.o. daily. 3. Decadron 5 mg 3 times daily for 3 days and then will start Decadron tapering as. a. Decadron 6 mg p.o. at 0700 hours and 1200 hours. b. Decadron 4 mg p.o. every night at bedtime that starts from 07/09 to 07/11. c. Decadron 6 mg at 0700 hours, start on 07/12 at 7:00 a.m. and stop on 07/14. d. Decadron 4 mg at 1200 hours and 2100 hours, start on 07/12 and stop on 07/14. e. Decadron 4 mg p.o. at 0700 hours and 1200 hours and 2100 hours, start on 07/12 and stop on 07/17. f. Decadron 4 mg p.o. at 0700 hours and 1200 hours, start on 07/18 and stop on 07/20. g. Decadron 2 mg p.o. at bedtime, start on 07/18 and stop on 07/20. h. Decadron 4 mg twice daily, start on 07/21. i. Decadron 4 mg in the morning, start on 07/24, stop on 07/26. j. Decadron 2 mg at bed every night, start on 07/24 at 2100 hours. k. Decadron 2 mg p.o. twice daily, start on 07/27, stop on 07/29. l. Decadron 2 mg in the morning, start on 07/30 and stop on 08/01. 4. Colace 100 mg p.o. b.i.d. 5. Lovenox as per her family physician. I feel that she might require to PATIENT'S NAME: DEZ SALDAÑA [facility] AGE: 75 Y [address] ROOM: [address] [address] LOCATION: [facility] ADMIT DATE: 07/02/2016 Discharge Summary DISCHARGE DATE: FAMILY PHYSICIAN: Ang Dickens MD ATTENDING PHYSICIAN: Lokesh Jones continue Lovenox for a while. 6. Flonase 50 mcg per nasal spray. 7. We will stop NovoLog insulin mild scale. She is stable with blood glucose. 8. Imdur 45 mg p.o. daily at 0700 hours. 9. Cozaar 50 mg p.o. daily. 10. Protonix 40 mg p.o. daily. 11. Dilantin 100 mg 3 times daily. 12. Albuterol one each inhalation one time q.6 hours. 13. Tylenol 650 mg q.6 hours, give 36 of them. 14. Nitrostat 0.4 mg sublingually p.r.n. FINAL DIAGNOSES: 1. Unstable gait. 2. Dependent activities of daily self-care. 3. Some difficulty with speech, which has corrected. 4. Status post multiple brain metastases, primary cancer breast. 5. Cancer, breast, per history. 6. Metastasis to liver, lung and recently to brain. 7. Gastric reflux disease. 8. Coronary artery disease with myocardial infarction. 9. Seizure precautions. 10. Hypertension. 11. Chronic obstructive pulmonary disease and status post wedge resection of the upper lobe of the right lung per history. The patient is given outpatient PT, OT 3 times per week for the coming 4 weeks. I will see her thereafter. Follow up with Dr. Don, Dr. Sharp, and Dr. Bailey as he sees fit. She should follow with her family physician as soon as possible. Lovenox per her family physician and followup. She should not drive and/or operate any mechanical device until she is reevaluated, and all the above was explained to her in detail. She verbalized understanding and agreement with plan of care. MD REA HUI/linn /[id number] d: 07/08/16510 t: 07/08/16827, DISCHARGE SUMMARY
--- NOTE | ~2016-07-02 | HP ---
PATIENT'S NAME: DEZ SALDAÑA [facility] AGE: 75 Y [address] ROOM: [facility] [place] [address] LOCATION: [facility] ADMIT DATE: 07/02/2016 History & Physical DISCHARGE DATE: FAMILY PHYSICIAN: Ang Dickens MD ATTENDING PHYSICIAN: Lokesh Chadwick DATE OF SERVICE: HISTORY OF PRESENT ILLNESS: This 75-year-old lady is admitted to rehab unit at [facility] on 07/02/2016 for continuous medical treatment and intensive rehabilitation. 1. Unstable gait. 2. Dependent in activities of daily self-care. 3. Status post bilateral brain metastases lesions from primary CA breast and also has metastases to lung and liver leading to unstable gait and dependent in activities of daily self-care. PHYSICAL EXAMINATION: GENERAL: She is, at the present time, alert, oriented. VITAL SIGNS: Vitals on admission are as follows: Blood pressure 145/63, temperature 98.2, pulse 95 and regular, and respiration rate 16. She is 5 feet 2 inches and weighs 64.0 kg. ALLERGIES: NO KNOWN ALLERGIES. She is weightbearing as tolerated, on no seizure precautions. MEDICATIONS: She is, at the present time, on the following medications: 1. Norvasc 2.5 mg p.o. daily. 2. Aspirin 81 mg p.o. daily. 3. Decadron 6 mg 3 times daily. 4. Colace 100 mg p.o. b.i.d. 5. Lovenox 40 mg subcu daily. 6. Flonase 2 sprays each nostril daily. 7. NovoLog insulin mild scale per protocol. 8. Imdur 45 mg p.o. daily. 9. Cozaar 50 mg p.o. daily. 10. Protonix 40 mg p.o. daily. 11. Dilantin 100 mg p.o. t.i.d. 12. Albuterol one inhalation q.6 hours. 13. Sodium chloride 0.9% 250 bag per protocol from stock. 14. Tylenol 650 q.6 hours, do not exceed acetaminophen 4 g q.24 hours. 15. Colora 5/325 one to two tablets q.4 hours, do not exceed acetaminophen 4 PATIENT'S NAME: DEZ SALDAÑA [facility] AGE: 75 Y [address] ROOM: [id number] [place], [place] [address] LOCATION: [facility] ADMIT DATE: 07/02/2016 History & Physical DISCHARGE DATE: FAMILY PHYSICIAN: Ang Dickens MD ATTENDING PHYSICIAN: Lokesh Chadwick q.24 hours. 16. Dextrose 50% 25 mL IV for hypoglycemia. 17. Glucagon 1 mg subcu for hypoglycemia p.r.n. 18. Glucose 16 g p.o. for hypoglycemia p.r.n. 19. Milk of magnesia 30 mL as needed p.r.n. 20. Zofran 4 mg IV or p.o. as needed. 21. Lithium nasal spray as needed per nostril. 22. Albuterol sulfate inhalation q.4 hours as needed. PAST HISTORY OF SIGNIFICANCE: 1. Status post breast lumpectomy in June 2015. 2. Status post thoracostomy and wedge resection of the right upper lobe in 2007. 3. Status post left hip biopsy in 2007. 4. Heart catheterization in March 2013 and July 2014. 5. Bilateral lower extremity bypass in 1999 and 2004. 6. Tonsillectomy. 7. Status post appendectomy. 8. Status post partial hysterectomy. 9. Status post balloon angioplasty in February 2015. 10. Bilateral cataracts in 2014. 11. Left breast nodule biopsy in June 2015. At the present time, we will put on intensive PT, OT, and speech as needed for the coming 2 weeks or so, aiming to discharge on modified independence. We will keep on Dr. Shana Bailey, Dr. Sharp, and Dr. Don to follow as necessary. LABORATORY DATA: On 07/03/2016, her Accu-Cheks were 86 at 0736 hours. CBC: White BC 7.7, RBC 3.33, hemoglobin 11.0, hematocrit 32.3, and platelets 143. CMS: Sodium 139, potassium 3.9, chloride 106, CO2 of 28, BUN 18, creatinine 0.5, and glucose 116. Hemoglobin A1c on 07/01 was 5.3. Phenytoin level on 07/01 was 11.0. UA within normal limits. ASSESSMENT AND PLAN: She can ambulate up to 40 feet with handheld assistance. We will continue to put her on intensive PT, OT, and speech as necessary for the coming 2 weeks, 3 PATIENT'S NAME: DEZ SALDAÑA [facility] AGE: 75 Y [address] ROOM: [address] [address] LOCATION: [facility] ADMIT DATE: 07/02/2016 History & Physical DISCHARGE DATE: FAMILY PHYSICIAN: Ang Dickens MD ATTENDING PHYSICIAN: Lokesh Chadwick hours per day, 15 hours per week. All the above was explained to her and her . They verbalized understanding and agreement. LOKESH CHADWICK MD WMS/modl /[id number] D: T: HISTORY & PHYSICAL
[~2016-07-02 10:10] MED LIST changes: +DECADRON4 MG PO; +PRILOSEC20 MG PO
--- NOTE | 2016-07-02 17:09 | NUR ---
Significant Event:PATIENT ADMITTED TO ROOM 3296-1 FROM [facility] THIS AM AT APPROXIMATELY 1000 VIA WHEELCHAIR. FAMILY AT SIDE. PATIENT WAS ADMITTED WITH HAVING HAD A SEIZURE WITH A HISTORY OF BREAST CA WITH METS TO THE LUNG, LIVER AND BRAIN. IS CURRENTLY UNDERGOING RADIATION THERAPY AND WILL GO EVERY DAY AT 3PM DURING THE WEEK AFTER THERAPIES ARE DONE. SHE IS ON DECADRON SO IS ALSO ON ACCU CHECKS ACHS. LUNCH WAS 103. SHE HAS NOT HAD ANY PROBLEMS PER REPORT FROM PREVIOUS FLOOR. SHE WAS ORIENTED TO THE UNIT AND FAMILY SHOWN WHERE THERAPY WAS. DENIED PAIN EARLIER BUT THEN HAD A PRESSURE HEADACHE AND GIVEN TYLENOL AT 1645. SHE HAS A PORT IN HER RIGHT CHEST THAT WAS ACCESSED ON THE SO WILL NEED CHANGED THE . LABS MAY BE DRAWN FROM THIS. NO OTHER COMPLAINTS. Follow up:
[2016-07-02 18:59] LABS: BILIRUBIN URINE NEGATIVE (NEGATIVE); BLOOD URINE NEGATIVE /UL (NEGATIVE); GLUCOSE URINE NEGATIVE (NEGATIVE); KETONE URINE NEGATIVE (NEGATIVE); LEUKOCYTES URINE 500 /UL (NEGATIVE); NITRITE URINE NEGATIVE (NEGATIVE); PROTEIN URINE NEGATIVE (NEGATIVE); UROBILINOGEN URINE 1 mg/dL (NORMAL)
[2016-07-02 19:05] LABS: COLOR URINE YELLOW (YELLOW); TURBIDITY URINE 2+ (CLEAR)
[2016-07-02 19:38] LABS: BACTERIA URINE RARE (NEGATIVE); RBC URINE 0-2 #/HPF (NEGATIVE); WBC URINE 20-50 #/HPF (NEGATIVE)
[2016-07-03 04:44] LABS: ALBUMIN 2.4 gm/dL (3.5-5.0); ALK PHOS 111 IU/L (33-138); ALT 64 IU/L (12-78); ANION GAP 8.9 (10.0-19.0); AST 33 IU/L (10-40); BLOOD UREA NITROGEN 18 mg/dL (6-24); CALCIUM 8.3 mg/dL (8.5-10.5); CHLORIDE 106 mMol/L (96-110); CO2 28 mMol/L (22-32); CREATININE 0.5 mg/dL (0.5-1.1); POTASSIUM 3.9 mMol/L (3.7-5.1); SODIUM 139 mMol/L (135-145); TOTAL PROTEIN 6.3 g/dL (6.0-8.4)
[2016-07-03 04:45] LABS: ESTIMATED GFR (MDRD EQUATION) > 60; TOTAL BILIRUBIN 0.2 mg/dL (0.0-1.5)
[2016-07-03 04:48] LABS: BASOPHIL % 0.3 %; EOSINOPHIL % 0.5 %; IMMATURE GRANULOCYTE # 0.1 K/uL (0.0-0.3); LYMPHOCYTE # 0.8 K/uL (0.8-4.0); MCHC 34.1 gm/dL (32.0-36.5); MONOCYTE # 0.4 K/uL (0.0-1.0); MONOCYTE % 4.8 %; NEUTROPHIL # (ANC) 6.4 K/uL (1.8-7.8); NEUTROPHIL % 83.4 %; NRBC % 0 /100WBC (0-0.00); PLATELET COUNT 143 K/uL (150-450); RDW-CV 12.2 % (11.9-14.6); WBC 7.7 K/uL (4.0-11.0)
[2016-07-03 04:50] LABS: HEMATOCRIT 32.3 % (33.0-46.0); RBC 3.33 M/uL (3.50-5.50)
--- NOTE | 2016-07-03 05:03 | NUR ---
Patient alert and oriented. Transfers 1A Gb/walker. Family at beside throughout the evening. ACHS accu checks due to recieving decadron, last BG was 138 with no sliding scale recieved. Port to R) chest with labs drawn this am, saline locked otherwise. Dressing to be changed on the 17. Denies pain. Uses call light appropriately but is quick to get up. Pleasant and cooperative with cares.
--- NOTE | 2016-07-03 13:09 | NUR ---
Significant Event: PATIENT UP 1 ASSIST, WALKER, GAIT BELT. ALERT AND ORIENTED X3. CALLS APPROPRIATELY, FAMILY AT BEDSIDE. NO SWALLOWING ISSUES. ACHS ACCUCHECKS, NO SLIDING SCALE NEEDED TODAY. TYLENOL FOR HEADACHE THIS AM. PORT ACCESSED, GOOD BLOOD RETURN. ON DILANTIN FOR SEIZURE HISTORY. RECEIVES RADIATION. TOLERATED THERAPY WELL TODAY. Follow up:
--- NOTE | 2016-07-04 04:35 | NUR ---
Patient alert and oriented. Transfers 1A gb/walker. Family at bedside this evening. Tylenol given for dull headache. Seemed more tired this evening and has slept well throughout the night. Accucheck 116 with no sliding scale given. R) port accessed, not recieving any meds through it. Cooperative with cares.
--- NOTE | 2016-07-04 14:02 | NUR ---
Significant Event: PATIENT ALERT AND ORIENTED X3, VERY PLEASANT AND COOPERATIVE. UP 1 ASSIST, WALKER, GAIT BELT. STEADY WHEN AMBULATING. PORT ACCESSED, CAP CHANGED AND LINE FLUSHED TODAY. FEEDS SELF WELL, NO ISSUES SWALLOWING, MEDS WHOLE WITH WATER. TYLENOL X1 TODAY FOR HEADACHE. AT BEDSIDE TODAY. VITALS STABLE ON ROOM AIR. CALLS APPROPRIATELY. CONTINENT OF BOWEL AND BLADDER. Follow up:
--- NOTE | 2016-07-05 05:26 | NUR ---
Alert and oriented. Calls for assistance as needed. HS zwf=[id number] with no sliding scale indicated. Awakens at 0330 to void and has sm BM. C/O substernal vs epigastric pain. Nitro tab and Tyelnol both given. BP= 148/81 P=81 at that time. AT 1900 BP= 130/62 P=86. Pt checked on again at 0415 and she was sleeping soundly. Is up with one assist and walker.
--- NOTE | 2016-07-05 16:04 | NUR ---
Significant Event: A/Ox3, makes needs known, pleasant and cooperative with cares. Family present most of the day. Transfers 1 standby assist, walker. No c/o pain today. Port needle and dressing changed. Continent of bowel and bladder. Possibly home at the end of the week. Follow up:
--- NOTE | 2016-07-06 05:19 | NUR ---
Alert and oriented. Calls for assistance as needed. Up with one assist and walker. Denied need for prn pain meds. Family here most of night and assists with pt cares. HS acc- 128.
--- NOTE | 2016-07-06 13:37 | NUR ---
Significant event: Pt up in room with walker, 1 assist, weakness present, nakul. fair, shakey. Denied pain. Met with cancer center staff today. Port SL to rt chest, dressing C/D/I. Pt pleasant and cooperative with cares. Radiation this afternoon. follow up: Possible discharge, pain management, activity
--- NOTE | 2016-07-06 17:00 | NUR ---
Significant Event: Pt up in room with 1 assist, walker, sl unsteady, nakul. fair. Pt had radiation this afternoon. Minimal c/o pain. No c/o epigastric pain. Rt chest port SL. Pt pleasant and cooperative with cares. Follow up: plan for discharge Thurs, activity, safety
--- NOTE | 2016-07-07 03:16 | NUR ---
Significant Event: Patient is alert and oriented x 3. VSS. O2 sats go from 88-90% on room air. Is getting RT treatments. Has a harsh nonproductive cough. Patient seems very independent and does not like having to ask for assist. Wants to be up ad radha in her room. Up one assist with GB/Walker, gait slightly unsteady. Is getting radiation daily until Tuesday. Implanted port to upper right chest is accessed and flushes well with good blood return. Denies pain or discomfort. Accu checks AC&HS. Last night was 124 no SSI needed. Follow up: Plans to discharge on .
--- NOTE | 2016-07-07 09:08 | NUR ---
A-SCREENED D/T LOS; NEW ADMIT TO [facility] PLAN FOR D/C ON TUESDAY, 07/08 S/P SEIZURE. HX OF BREAST CA W/METS TO LIVER, LUNG, AND BRAIN. UNDERGOING RADIATION DAILY UNITL TUESDAY (07/09) HT: 62 IN. WT: 62.4 KG. BMI: 25.1 LABS (07/03): NA 139, K+ 3.9, GLU 116, BUN 18, CEILING INSTALLER 0.5, ALB 2.4, PREALB 25.0 MEDS: DECADRON, PROTONIX, COLACE, NOVOLOG (MILD SS), DILANTIN, ZOFRAN, PRN BOWEL MEDS DIET RX: REGULAR. PO INTAKE 25-100% WITH THE AVG BEING 53% SINCE ADMITTED TO [facility] EST NUTR NEEDS: [id number] KCALS (25-30 KCALS/KG) 62-75 GM PROTEIN (1.0-1.2 GM/KG) 1 ML FLUID/KCAL D-AT NUTRITION RISK W/INCREASED NUTRIENT NEEDS R/T CATABOLIC DZ PROCESS AEB DX. I-WILL ADD ENSURE ENLIVE QD AT BREAKFAST TO PROVIDE ADDITIONAL NUTRIENTS M/E-GOAL: PO INTAKE 50-75% BY NEXT F/U 1)F/U PO INTAKE, SUPPLEMENT, AND POC IN 4-5 DAYS 2)ASSIST NEEDED
--- NOTE | 2016-07-07 11:49 | NUR ---
Significant Event: PATIENT ALERT AND ORIENTED X3. COMPLAINS OF PRESSURE HEADACHE, TYLENOL GIVEN AND RELIEF NOTED. AMBULATES 1 ASSIST WITH GAIT BELT. FEEDS SELF WELL, NO ISSUES SWALLOWING. VITALS STABLE ON ROOM AIR. ACHS ACCUCHECKS DUE TO PREDNISONE, NO SLIDING SCALE NEEDED TODAY. CALLS APPROPRIATELY. CONTINENT OF BOWEL AND BLADDER. AT BEDSIDE. WILL DISCHARGE TOMORROW. RADIATION SCHEDULED AT 1500 TODAY. Follow up:
--- NOTE | 2016-07-08 03:24 | NUR ---
Significant Event: Patient alert and oriented, VSS. Has slept most of the shift. Denies pain or discomfort. Ambulates 1 assist with GB. Calls very little for assist and tells nursing she has no needs. Accu checks AC&HS. Last night BS 114 no SSI needed. Is getting radiation today at 1500 will stop by there after discharge. Dr Dickens will be in today to address the Lovenox. Follow up: Discharge today.
[2016-07-08] MEDS ORDERED: AMLODIPINE BES2.5 MG PO (08:37)
[2016-07-08] MEDS ORDERED: COLACE100 MG PO (08:46)
[2016-07-08] MEDS ORDERED: FLONASE 50 MCG/16 GM NOSE (08:47)
[2016-07-08] MEDS ORDERED: COZAAR50 MG PO (08:50)
[2016-07-08] MEDS ORDERED: DILANTIN100 MG PO (08:51)
[2016-07-08] MEDS ORDERED: DUONEB INH (08:52)
[2016-07-08] MEDS ORDERED: TYLENOL325 MG PO (08:53)
--- NOTE | 2016-07-08 11:13 | NUR ---
Prescriptions sent with . Patient and verbalized understanding of discharge orders. Laura education handouts sent with them on new medications. Patient was given a therapy packet to take to outpatient therapy. Patients port to R)chest was deaccessed prior to discharge. Patient and her denied further questions. Patients belongings were gathered and patient was taken out to vehicle per our staff member.
--- NOTE | 2016-07-09 10:25 | NUR ---
[facility] Case Management Prefunctioning and Psycho-Social Initial Assessment for 07/02/16, Case Conference Note for 07/06/16 and Discharge Note for 07/08/16 D: Initial Software Installation EngineerPunch Machine Hand, Case Confererence Note, Discharge Note. I: Input from: patient, family, Dr. Jones, Sharon Jara [facility], Dr. Dickens, Sujata Padilla [facility]. R: Reason for admission: diagnosis of seizures-new lesions in brain. Prior history of metastatic breast cancer to liver and lung. Now, brain too. Admission Date to [facility]: 07/02/16 Admission Date to Hospital: 06/28/16 Prior level of functioning: patient was independent with all adl's prior to seizure. Prior living situation: one story house Financial resources/expectations: patient has Medicare and [employer]. Resources used: none. Resources available: HHC, outpatient therapy, SNF, [facility], [facility], DME. Family support available: Understands nature of health condition: yes Recognizes impact of health condition on lifestyle: yes Vocational/Educational: retired Behavior/Emotional needs: cues for safety. Monitor for signs and symptoms of depression and anxiety. Legal concerns: none. Discharge goal: home with support. Assessment: is a 75 year old woman from [place], [place] admitted to rehab. She plans to return to home on d/c. Team conference was held and plan is to d/c patient on 07/08/16 with outpatient therapy services. Patient denies any need for DME. plans to hand picker a transfer tub bench from [facility]. Will call patient next week to see how she is doing post discharge. Orientation to the program and CM services completed with . Initial plan of care and estimated length of stay discussed, disclosure statement reviewed including patient assessment rights. P: Target date and individual goals established. Please see POC for details. For additional information please see Nursing Data Base, PT, OT, TR, ST, Initial assessments to [facility].
--- NOTE | 2016-07-12 13:47 | NUR ---
Saw patient at cancer center. Patient is doing fine. Helped patient set up medications in pill boxes and went over med list and follow up appointments. Patient got wheeled walker and shower chair for home. Will continue to follow.
== END 2016-07-08 11:00 | disposition disaster alternative care site (69) | DRG 949 ==
LOC: GIRP 10:10
PROVIDERS: ADMIT Physical Medicine & Rehabilitation
DX: Z48.3 Aftercare following surgery for neoplasm (principal); C79.31 Secondary malignant neoplasm of brain; C78.00 Secondary malignant neoplasm of unspecified lung; C78.7 Secondary malignant neoplasm of liver and intrahepatic bile duct; R26.81 Unsteadiness on feet; Z74.1 Need for assistance with personal care; Z85.3 Personal history of malignant neoplasm of breast; Z79.82 Long term (current) use of aspirin; I25.2 Old myocardial infarction; I10 Essential (primary) hypertension; J44.9 Chronic obstructive pulmonary disease, unspecified; I73.9 Peripheral vascular disease, unspecified
CPT/HCPCS: J1642; J1650

== ENCOUNTER 2016-08-05 07:16 | Inpatient (IN) | payer MEDICARE, OTHER ==
[~2016-08-05] VITALS: Ht 160 cm; Wt 56.6 kg
--- NOTE | ~2016-08-05 | CON ---
PATIENT'S NAME: [facility] AGE: 75 Y [address] ROOM: [id number] [place] [id number] LOCATION: GPCU ADMIT DATE: 08/05/2016 Consultation DISCHARGE DATE: FAMILY PHYSICIAN: Ang Dickens MD ATTENDING PHYSICIAN: Ang Dickens DATE OF CONSULTATION: 08/11/2016 REFERRING PHYSICIAN: Coleen Ureña APRN REASON FOR CONSULT: Pulmonary embolism and deep vein thrombosis, need for inferior vena cava filter placement. HISTORY OF PRESENTING ILLNESS: This is a 75-year-old female, currently admitted to the progressive care unit at [facility]. She had presented to the emergency room on the with weakness, chest pain, shortness of breath, and nausea. At that time, a CT showed bilateral small pulmonary embolisms. The patient is currently on heparin drip. Venous duplex has revealed DVT in her left lower extremity, popliteal, PTV, and peroneal veins. 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 She has underwent lumpectomy and resection of a right upper lung as well as radiation and chemo. Recently, she was admitted for new onset seizures. The patient continues to complain of nausea. She reports that her shortness of breath has improved since admission, but she continues to have episodes of dyspnea, continues with oxygen per nasal cannula. She also continues to have weakness and fatigue. She denies any claudication or edema. She reports that she has had no problems with the pvzcems-zm-esfbsms bypass. She denies any history of DVT. Denies any family clotting disorders. She has been evaluated by GI regarding her nausea; however, at this time the risks of EGD outweighed the benefits. She denies any current chest pain. PAST MEDICAL HISTORY: 1. New onset seizures. 2. Cervical cancer. 3. Breast cancer. 4. 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 5. COPD. 6. Brain metastasis. 7. Neuropathy. 8. Hypertension. 9. Hyperlipidemia. 10. Peripheral vascular disease. 11. Coronary artery disease. PATIENT'S NAME: [facility] AGE: 75 Y [address] ROOM: [place] [address] LOCATION: GPCU ADMIT DATE: 08/05/2016 Consultation DISCHARGE DATE: FAMILY PHYSICIAN: Ang Dickens MD ATTENDING PHYSICIAN: Ang Dickens 12. History of tobacco abuse. SURGICAL HISTORY: 1. Thoracotomy with wedge resection of the right upper lobe in 2007. 2. Fem-fem bypass in 1999. 3. Tonsillectomy. 4. Hip biopsy. 5. Appendectomy. 6. Bilateral cataracts. 7. Heart catheterization. 8. Balloon angioplasty. 9. Left breast lumpectomy in June 2015. 10. Partial hysterectomy. FAMILY HISTORY: Father with stomach cancer, stroke, and hypertension. Her mother had breast cancer. She had a sister with breast cancer. Two brothers with coronary artery disease. SOCIAL HISTORY: The patient lives in [place] with her . She has a smoking history of 49 years; however, quit in 2007. She reports occasional alcohol use. Denies illicit or illegal drug use. CURRENT MEDICATIONS: See medication reconciliation. ALLERGIES: NO KNOWN DRUG ALLERGIES. REVIEW OF SYSTEMS: A 10-point review of systems completed, positives addressed in history of presenting illness. PHYSICAL EXAMINATION: VITAL SIGNS: Heart rate 110, temperature 98.5, respiratory rate 16, oxygen saturations 93% on 3 L per nasal cannula, blood pressure 145/65. GENERAL: She is ill appearing; however, no acute distress. She is alert and oriented x3. Good historian. SKIN: Warm, pink, and dry. No rashes or ulcers. HEENT. Head: Normocephalic and atraumatic. Ears: Without drainage. Eyes: Sclerae white. Conjunctivae pink. Extraocular movements intact. PERRLA. Nose: Without drainage. Throat: Oral mucosa pink and moist. No exudate or erythema. NECK: Without adenopathy. No evidence of JVD. No carotid bruit. Trachea PATIENT'S NAME: [facility] AGE: 75 Y [address] ROOM: [place] [address] LOCATION: GPCU ADMIT DATE: 08/05/2016 Consultation DISCHARGE DATE: FAMILY PHYSICIAN: Ang Dickens MD ATTENDING PHYSICIAN: Ang Dickens midline. RESPIRATORY: Clear to auscultation. Even and nonlabored. CARDIOVASCULAR: Regular rate and rhythm. No murmur or extra sounds. She is tachycardic at times. GASTROINTESTINAL: Bowel sounds active x4. Soft and nontender. No organomegaly. EXTREMITIES: Palpable pulses throughout. No edema, no cyanosis. Cap refill less than 3 seconds. Extremities warm to touch. Active range of motion throughout. NEUROLOGICAL: No focal deficits. LABS: Hematology: White blood cell count 4.4, hemoglobin 9.8, hematocrit 29.4, platelets 237. IMPRESSION AND PLAN: 1. Bilateral pulmonary embolism and left lower extremity deep venous thrombosis. The patient continues on heparin drip at this time. However there is concern about placing this patient on long-term anticoagulation due to comorbidities and overall poor health. We were consulted for placement of an IVC filter. At this time, we believe the risks and benefits of IVC placement outweigh the bleeding risks of oral anticoagulation in combination with her medical history. The patient is in agreement with this plan. Therefore, we will plan for inferior vena cava filter placement today with Dr. Arrington. We will stop heparin prior to this procedure. 2. Peripheral vascular disease, history of fem-fem bypass. Legs are well perfused on exam, appears stable at this time. The patient is currently on aspirin and Lipitor and we would recommend continuing these medications. Thank you for your consultation and for allowing us to participate in the care of this patient. LIAM ESCOBAR APRN FOR CHIDI ARRINGTON MD TO/linn /[id number] d: 08/11/16 1251 t: 08/17/16 0954, CONSULTATION REPORT
--- NOTE | ~2016-08-05 | CON ---
PATIENT'S NAME: DEZ [facility]DA[facility] AGE: 75 Y [address] ROOM: [id number] [place], [place] [address] LOCATION: GPCU ADMIT DATE: 08/05/2016 Consultation DISCHARGE DATE: FAMILY PHYSICIAN: Ang Dickens MD ATTENDING PHYSICIAN: Ang Dickens DATE OF CONSULTATION: 08/09/2016 REFERRING PHYSICIAN: Coleen Ureña [facility] CONSULTATION REFERRING PROVIDER: Ang Dickens MD REASON FOR CONSULTATION: Nausea. HISTORY OF PRESENT ILLNESS: This is a very pleasant, 75-year-old female, who presented to the emergency room after increasing weakness and inability to care for herself for the past 24 hours. The patient has a significant medical history including grade 3 infiltrating ductal carcinoma of the left breast with metastatic disease noted to the brain, liver, and lung. The patient currently is undergoing chemotherapy as she was also provided chemotherapy for metastatic liver disease. On admission, she was diagnosed with small bilateral pulmonary embolisms as she currently is on heparin. We were asked to see the patient in consultation for complaints of severe nausea and fullness feeling. The patient was seen and examined. She states over the past 3 weeks she has noticed significant increase in nausea as well as a fullness feeling in her mid epigastric area. The patient also states that she has had a significant decrease in her appetite. She denies any dysphagia or vomiting. She also denies any bob abdominal pain. She has had loose bowel movements that are significantly postprandial. She previously was on Prilosec at home as well as Zofran as the Zofran did subside the nausea slightly. The patient also had been on steroid therapy. There is significant family history of stomach cancer in her father. A CT completed on 08/05/2016 showed hepatic metastatic disease stable with no new metastatic disease seen. No clear etiology for the nausea. She denies any history of upper endoscopy. Has undergone colonoscopy prior with negative results per her statement. The patient currently denies any chest pain, chest pressure, or shortness of breath. She does state over the last few weeks, she has noticed increase in fatigue and generalized weakness as well. She also prior to admission had episode of chest pain and increasing shortness of breath, though this has resolved at this time. PAST MEDICAL HISTORY: PATIENT'S NAME: [facility] AGE: 75 Y [address] ROOM: [place] [address] LOCATION: GPCU ADMIT DATE: 08/05/2016 Consultation DISCHARGE DATE: FAMILY PHYSICIAN: Ang Dickens MD ATTENDING PHYSICIAN: Ang Dickens 1. Metastatic breast cancer to the liver, lung, and brain. 2. New onset of seizures in June. 3. Hypertension. 4. Coronary artery disease. 5. Peripheral vascular disease. 6. Hyperlipidemia. 7. COPD. 8. Qew-sxuzj-oiyn carcinoma of the right upper lung status post lobectomy. 9. History of cervical cancer, status post partial hysterectomy. PAST SURGICAL HISTORY: 1. Left breast lumpectomy in June 2015. 2. Thoracotomy with wedge resection of the right upper lobe in 2007. 3. Left hip biopsy in 2007. 4. Cardiac catheterization in March 2013 and July of 2014. 5. Bilateral lower extremity bypass in 1999 and 2004. 6. Tonsillectomy. 7. Appendectomy. 8. Partial hysterectomy. 9. Balloon angioplasty. 10. Bilateral cataract surgery. 11. Left breast core-needle biopsy. 12. No history of upper endoscopy. 13. Recent colonoscopy in the last 2 years. SOCIAL HISTORY: The patient lives here in [place]. She is retired. She is . She smoked two packs of cigarettes per day for 49 years, but quit in 2007. She denies any alcohol or illicit drug use. FAMILY HISTORY: The patient's father secondary to stomach cancer, stroke, and hypertension. The patient's mother had breast cancer in 1981. The patient's sister had a history of breast cancer as well. She has 2 brothers with a history of heart disease. ALLERGIES: NO KNOWN MEDICATION ALLERGIES. CURRENT MEDICATIONS: Please refer to the medication administration record. REVIEW OF SYSTEMS: A 10-point review of systems was completed. All were negative except for those identified in the History of Present Illness. PATIENT'S NAME: DEZ SALDAÑA [facility] AGE: 75 Y [address] ROOM: [place] [address] LOCATION: GPCU ADMIT DATE: 08/05/2016 Consultation DISCHARGE DATE: FAMILY PHYSICIAN: Ang Dickens MD ATTENDING PHYSICIAN: Ang Dickens PHYSICAL EXAMINATION: GENERAL: A pleasant 75-year-old female, who appears to be in no acute distress. Lying in bed. VITAL SIGNS: Temperature 97.6, pulse is 76, respirations are 16, blood pressure 141/66, and oxygen saturation is 95% on 3 L nasal cannula. SKIN: [place], warm, dry. No jaundice. HEENT: Head is normocephalic and atraumatic. Pupils are equal, round, and reactive to light. Sclerae are clear. Nonicteric. Oral mucosa is pink and moist. No thyromegaly. NECK: Soft and supple. CARDIOVASCULAR: Regular. Normal S1 and S2. RESPIRATORY: Respirations even and unlabored. LUNGS: Clear to auscultation. ABDOMEN: Soft, round, nontender, and nondistended. Bowel sounds hypoactive x4 quadrants. MUSCULOSKELETAL: No muscle weakness or atrophy. EXTREMITIES: No clubbing, cyanosis, or edema. NEUROLOGIC: Grossly nonfocal. LABORATORY DATA AND IMAGING STUDIES: Labs and Diagnostics: White blood cell count of 4.4, hemoglobin of 9.8, hematocrit of 29.4, and platelets of 237,000. Chemistry panel includes a glucose of 98, BUN of 9, creatinine 0.5, sodium of 141, potassium of 3.5, chloride of 101, and CO2 of 32. CT abdomen and pelvis completed on 08/05/2016 showed hepatic metastatic mildly decreased versus 06/21/2016 imaging, otherwise, stable. No new or additional metastatic disease. Chest CT is reported as positive for small bilateral pulmonary emboli, mild pulmonary edema, and chronic right upper lobectomy. ASSESSMENT AND PLAN: Again this is a very pleasant, 75-year-old female with metastatic breast cancer to the liver, lung, and brain. We were asked to see in consultation for patient's nausea: 1. Nausea. The patient complains of significant nausea for approximately 3 weeks with complaints of midepigastric fullness and decreased appetite. At this time, we are recommending for the patient to undergo an upper endoscopy to rule out a clear etiology especially with steroid use. This will be discussed with Pulmonary as well as patient's primary care doctor in lieu of the patient's recent pulmonary embolism and is currently on a heparin drip. 2. Pulmonary embolism. The patient currently is on heparin, being managed per her primary as well as the pending Pulmonary consult. Further recommendations after discussion with the Medical team for clearance for upper endoscopy. PATIENT'S NAME: DEZ SALDAÑA [facility] AGE: 75 Y [address] ROOM: [id number] [place] [id number] LOCATION: [facility] ADMIT DATE: 08/05/2016 Consultation DISCHARGE DATE: FAMILY PHYSICIAN: Ang Dickens MD ATTENDING PHYSICIAN: Ang Dickens Thank you for this consult. DONNA BARBER APRN FOR MD ADARSH TINOCO/deangelol /[id number] d: 08/09/16 1901 t: 08/17/16 1504, CONSULTATION REPORT
--- NOTE | ~2016-08-05 | CON ---
PATIENT'S NAME: PIOTR SUSIE [facility] AGE: 75 Y [address] ROOM: [place] [address] LOCATION: GPCU ADMIT DATE: 08/05/2016 Consultation DISCHARGE DATE: 08/13/2016 FAMILY PHYSICIAN: Ang Dickens MD ATTENDING PHYSICIAN: Ang Dickens DATE OF CONSULTATION: 08/09/2016 REFERRING PHYSICIAN: Coleen Ureña APRN INDICATION: Bilateral PEs. HISTORY OF PRESENT ILLNESS: This is a 75-year-old female admitted for weakness. She is found to have bilateral small nonocclusive peripheral PEs. She has a history of lung cancer in 2006 and is status post right upper right upper lobectomy. She also has a history of breast cancer with mets to the liver and brain. She has received chemo and radiation and recent scans have showed some improvement. She has recently reported seizures and MRI of the brain showed hemorrhagic areas noted. She has a history of smoking and quit in 2007. She also has a history of CAD. She denies any history of asthma or COPD. She was started on heparin drip for the PEs. She is currently using 4 to 5 L of oxygen; however, she typically does not require any oxygen at home. She denies any cough, sputum production, PND, orthopnea, wheezing, shortness of breath, edema, or chest pain. She does have some nausea and fullness which has been ongoing for the last few weeks. She also reports some diarrhea and weight loss. PAST MEDICAL HISTORY: 1. Includes metastatic breast cancer to the liver, lung, and brain. 2. New-onset seizures. 3. Hypertension. 4. CAD. 5. Peripheral vascular disease. 6. Hyperlipidemia. 7. 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 8. History of cervical cancer, status post partial hysterectomy. ALLERGIES: SEE MAR. MEDICATIONS: See MAR. SOCIAL HISTORY: The patient lives here in [place], and she is retired. She is . She PATIENT'S NAME: DEZ SALDAÑA [facility] AGE: 75 Y [address] ROOM: [place] [address] LOCATION: GPCU ADMIT DATE: 08/05/2016 Consultation DISCHARGE DATE: 08/13/2016 FAMILY PHYSICIAN: Ang Dickens MD ATTENDING PHYSICIAN: Ang Dickens smoked 1 to 2 packs of cigarettes per day for almost 50 years and quit in 2007. She denies any alcohol use. FAMILY HISTORY: The patient's father secondary to stomach cancer, stroke, and hypertension. The patient's mother had breast cancer. The patient's sister also has a history of breast cancer, and she has two brothers with history of heart disease. REVIEW OF SYSTEMS: All review of systems were reviewed and were negative except for what is noted in the HPI. PHYSICAL EXAMINATION: VITAL SIGNS: Blood pressure 150/66, pulse 84, respirations 22, temperature 98.1. She is 90% on 5 L nasal cannula. Weight upon admit was 61.9 kilograms and today is 60.5 kilograms. I's and O's are serially positive about 5.5 L. GENERAL: This is a 75-year-old, well-developed, well-nourished, ill-appearing female who is alert and oriented x3 and appears in no acute distress at the time of exam. HEENT. Head, normocephalic and atraumatic. Eyes, clear. NECK: Supple. No adenopathy. No carotid bruits or JVD. LUNGS: Bilateral rales at the bases. No wheezes. HEART: Regular rhythm, but tachycardic. No murmur, gallop, or rub. ABDOMEN: Soft, nontender, and nondistended. Bowel sounds x4. EXTREMITIES: No cyanosis, clubbing, or edema. DIAGNOSTIC DATA: Sodium 141, potassium 3.5, bicarb 32, BUN 9, creatinine 0.5. WBC 4.4, hemoglobin 9.8, hematocrit 29.4, platelets 237. ASSESSMENT: 1. Bilateral pulmonary embolisms, small and peripheral nonocclusive. Currently, on heparin but okay to be off for upcoming EGD. Consider checking lower extremity Dopplers. 2. Acute respiratory failure - multifactorial secondary to #1 as well as fluid overload and lobectomy. 3. Fluid overload. We will obtain echo and check proBNP. 4. Breast cancer with mets to the liver and brain. Overall for long-term anticoagulation needs, would potentially recommend no long-term anticoagulation as she already has demonstrated hemorrhagic changes on her brain MRI per Dr. Hayden. We will discuss with primary care regarding long-term anticoagulation. 5. History of lobectomy. 6. Nausea - possible etiology gastrointestinal versus metastatic changes. PATIENT'S NAME: DEZ SALDAÑA [facility] AGE: 75 Y [address] ROOM: [id number] [place], [place] [address] [facility] ADMIT DATE: 08/05/2016 Consultation DISCHARGE DATE: 08/13/2016 FAMILY PHYSICIAN: Ang Dickens MD ATTENDING PHYSICIAN: Ang Dickens Thank you for the consult and opportunity to participate in this patient's care. COLEEN UREÑA APRN FOR LIZETTE HAYDEN DO MRH/modl /[id number] d: 10/04/16 2304 t: 10/05/16 1213, CONSULTATION REPORT
--- NOTE | ~2016-08-05 | ENPV ---
Vascular Lower Extremities DVT Study Procedure Demographics Patient Name DEZ SALDAÑA Date of Study 08/09/2016 Patient Number [id number] Gender Female Date of 1940 Age 75 Visit Number [id number] Height 62.99 Accession Number [id number] Weight 136.47 Referring Jed Lynne DO Interpreting Murphy Schaefer MD Physician Physician Physician Ordering Physician Jed Lynne Spout Liner DO Console Attendant Matthias Krishna BS, RT Conclusions Summary No evidence of deep vein thrombosis or superficial thrombophlebitis in the right lower extremity . There is acute deep vein thrombosis in the left popliteal vein, trunk, and calf veins. Procedure Type of Study: Veins:Lower Extremities DVT Study, Venous Duplex Lower Extremity Bilateral. Indications for Study:Pulmonary embolism. Appropriate Use Criteria:8 Allergies - No known allergies. Patient Status:Routine. Study Location:Inpatient Portable. Technical Quality:Adequate visualization. Velocities are measured in cm/s ; Diameters are measured in cm Right Lower Extremities DVT Study Measurements Right 2D and Doppler Measurements + + + + +------+------+ + !Location !Visualized!Compressibility!Thrombosis!Signal!Reflux!Reflux ! ! ! ! ! ! ! !(sec) ! + + + + +------+------+ + !GSV Thigh !Yes !Yes !None !Phasic!No ! ! + + + + +------+------+ + !Common !Yes !Yes !None !Phasic!No ! ! !Femoral ! ! ! ! ! ! ! + + + + +------+------+ + !Prox !Yes !Yes !None !Phasic!No ! ! !Femoral ! ! ! ! ! ! ! + + + + +------+------+ + !Mid Femoral!Yes !Yes !None !Phasic!No ! ! + + + + +------+------+ + !Dist !Yes !Yes !None !Phasic!No ! ! !Femoral ! ! ! ! ! ! ! + + + + +------+------+ + !Popliteal !Yes !Yes !None !Phasic!No ! ! + + + + +------+------+ + !Gastroc !Yes !Yes !None !Phasic!No ! ! + + + + +------+------+ + !PTV !Yes !Yes !None !Phasic!No ! ! + + + + +------+------+ + !Peroneal !Yes !Yes !None !Phasic!No ! ! + + + + +------+------+ + Left Lower Extremities DVT Study Measurements Left 2D and Doppler Measurements +---------+ + + + +------+--------+ !Location !Visualized!Compressibility!Thrombosis!Signal !Reflux!Reflux ! ! ! ! ! ! ! !(sec) ! +---------+ + + + +------+--------+ !GSV Thigh!Yes !Yes !None !Phasic !No ! ! +---------+ + + + +------+--------+ !Common !Yes !Yes !None !Phasic !No ! ! !Femoral ! ! ! ! ! ! ! +---------+ + + + +------+--------+ !Prox !Yes !Yes !None !Phasic !No ! ! !Femoral ! ! ! ! ! ! ! +---------+ + + + +------+--------+ !Mid !Yes !Yes !None !Phasic !No ! ! !Femoral ! ! ! ! ! ! ! +---------+ + + + +------+--------+ !Dist !Yes !Yes !None !Phasic !No ! ! !Femoral ! ! ! ! ! ! ! +---------+ + + + +------+--------+ !Popliteal!Yes !No !Acute !Diminished!No ! ! +---------+ + + + +------+--------+ !PTV !Yes !No !Acute !Diminished!No ! ! +---------+ + + + +------+--------+ !Peroneal !Yes !No !Acute !Diminished!No ! ! +---------+ + + + +------+--------+ Signature dtt: CHIDI GRANADOS dtd: 08/09/16 1056 Physician Self Edit
--- NOTE | ~2016-08-05 | OR ---
PATIENT'S NAME: DEZ SALDAÑA [facility] AGE: 75 Y [address] ROOM: [place] [address] LOCATION: GPCU ADMIT DATE: 08/05/2016 OR/Procedure Report DISCHARGE DATE: FAMILY PHYSICIAN: Ang Dickens MD ATTENDING PHYSICIAN: Ang Dickens SURGEON: Silvano Granados MD WAREHOUSE ORDER PICKER: DATE OF PROCEDURE: 08/11/2016 PREOPERATIVE DIAGNOSIS: Deep venous thrombosis, unable to anticoagulate due to metastatic disease. POSTOPERATIVE DIAGNOSIS: Deep venous thrombosis, unable to anticoagulate due to metastatic disease. PROCEDURE: IVC filter placement. EMS INSTRUCTOR: Wilfred. ANESTHESIA: MAC and local. ESTIMATED BLOOD LOSS: 5 mL. OPERATIVE FINDINGS: Filter in good position. DESCRIPTION OF PROCEDURE: The patient was brought to the wood preserving plant laborer, placed supine on wood preserving plant laborer table, prepped and draped in a sterile manner. Preoperative time-out was performed. We gained access to the right common femoral vein using ultrasound guidance, using an 18-gauge needle followed by a Bentson wire. We used 1% lidocaine skin. We then used a 10-Estonian dilator to dilate the tract and we then brought our deployment sheath into position. We removed the inner dilator. We performed a venogram, which showed the position of the renal vessels at the L1-L2 interspace. We deployed the filter in this position. We performed a completion of venogram showing the filter in good operative position. We removed the sheath. We held pressure for 10 minutes. The patient tolerated the procedure well and was transferred to the recovery room and then back to the floor. SILVANO GRANADOS MD FKM/modl PATIENT'S NAME: DEZ SALDAÑA [facility] AGE: 75 Y [address] ROOM: [place] [address] LOCATION: GPCU ADMIT DATE: 08/05/2016 OR/Procedure Report DISCHARGE DATE: FAMILY PHYSICIAN: Ang Dickens MD ATTENDING PHYSICIAN: Ang Dickens /[id number] d: 08/11/168 t: 08/13/16 1244, OPERATIVE SUMMARY
--- NOTE | ~2016-08-05 | DS ---
PATIENT'S NAME: DEZ SALDAÑA [facility] AGE: 75 Y [address] ROOM: [address] [address] LOCATION: GPCU ADMIT DATE: 08/05/2016 Discharge Summary DISCHARGE DATE: 08/13/2016 FAMILY PHYSICIAN: Ang Dickens MD ATTENDING PHYSICIAN: Ang Dickens HISTORY OF PRESENT ILLNESS: Briefly, this patient has known metastatic breast cancer status post treatment. She was admitted to the hospital after suffering a seizure recently. Was found to have brain metastases. On this hospitalization, she presented to the hospital with shortness of breath and increasing weakness. She was found to have bilateral pulmonary embolism and was hypoxic. The patient was also anemic. Her hemoglobin was 8.8. The patient also had elevated troponin. HOSPITAL COURSE: The patient was admitted to the hospital and started on heparin per protocol. We held her losartan. We obtain a consultation regarding anticoagulation recommendations. She had depression and venlafaxine was started. She did have some tremor and it was unclear if it is related to medication or her brain metastases. We did decrease her Effexor to see if that would help. Her Dilantin was also increased. Gastroenterology was consulted for persistent nausea. Dr. Sharp from Neurology was also consulted. Initially we were going to get an EGD, but because of her medical condition, patient and Anesthesia decided that the yield may not be worth the risk. We tried Reglan to see if that would help. Consultation with Vascular Surgery recommended a placement of a vena cava filter. This was accomplished without any difficulty. Consultation was also obtained with Physiatry. She was able to be transferred to inpatient rehabilitation for strengthening and deconditioning. Her nausea was treated with scopolamine patch. DISCHARGE DIAGNOSES: Includin. Metastatic breast cancer. 2. Bilateral pulmonary embolism. 3. Hypoxia. 4. Persistent nausea. 5. Need for inferior vena cava filter. 6. Depression. 7. Tremor. 8. Elevated troponin at the time of admission. DISPOSITION: The patient was discharged to rehabilitation in stable condition. PATIENT'S NAME: DEZ SALDAÑA [facility] AGE: 75 Y [address] ROOM: [address] [address] [facility] AD[facility] DATE: 08/05/2016 Discharge Summary DISCHARGE DATE: 08/13/2016 FAMILY PHYSICIAN: Ang Dickens MD ATTENDING PHYSICIAN: Ang Dickens MD TLP/modl /[id number] d: 09/02/16 1904 t: 09/14/16 1819, DISCHARGE SUMMARY
--- NOTE | ~2016-08-05 | ER ---
PATIENT'S NAME: DEZ SALDAÑA [facility] AGE: 75 Y [address] ROOM: [place] [address] LOCATION: GPCU ADMIT DATE: 08/05/2016 ER/Outpatient Report DISCHARGE DATE: FAMILY PHYSICIAN: Ang Dickens MD ATTENDING PHYSICIAN: Ang Dickens Time of Arrival: 0716 hours. Time Rohit: 0724 hours. IDENTIFICATION: A 75-year-old female. CHIEF COMPLAINT: Chest pain. HISTORY OF PRESENT ILLNESS: The patient is a 75-year-old female who has had increasing weakness and inability to care for herself over the past 24 hours. She did have an episode of chest pain earlier, that has resolved. She has been short of breath, nauseous, and generalized weakness. 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 In October of 2015, she had mets to the liver, treated with chemotherapy. CT scan in June 2016 showed brain metastasis. With brain metastasis, she has also had lung metastasis, status post right upper lobectomy. She is currently undergoing radiation therapy for the brain metastasis. ALLERGIES: NO KNOWN DRUG ALLERGIES. CURRENT MEDICATIONS: 1. Dexamethasone 2 mg 4 times daily. 2. Omeprazole 20 mg b.i.d. 3. Losartan 50 mg daily. 4. Phenytoin 100 mg t.i.d. 5. Ondansetron 8 mg q.6 hours p.r.n. 6. Isosorbide mononitrate 30 mg 1-1/2 tablets daily. 7. Aspirin 81 mg daily. 8. Nitroglycerin p.r.n. 9. Amlodipine 2.5 mg daily. 10. Docusate 100 mg daily. 11. Fluticasone nasal spray 2 puffs daily. MEDICAL PROBLEMS: PATIENT'S NAME: DEZ SALDAÑA [facility] AGE: 75 Y [address] ROOM: [place] [address] LOCATION: GPCU ADMIT DATE: 08/05/2016 ER/Outpatient Report DISCHARGE DATE: FAMILY PHYSICIAN: Ang Dickens MD ATTENDING PHYSICIAN: Potthoff,Ang L Metastatic breast cancer to liver, lung, and brain; new onset seizures, diagnosed on June 28; hypertension; coronary artery disease; peripheral vascular disease; hyperlipidemia; COPD; non-small cell carcinoma of the right upper lung, status post lobectomy; and history of cervical cancer, status post partial hysterectomy. PRIOR SURGERIES: Left breast lumpectomy in June 2015, thoracotomy with wedge resection of the right upper lobe in 2007, left hip biopsy in 2007, cardiac catheterization in March 2013 and July of 2014, bilateral lower extremity bypass in 1999 and 2004, tonsillectomy, appendectomy, partial hysterectomy, balloon angioplasty, bilateral cataract surgery, and left breast core needle biopsy. SOCIAL HISTORY: The patient lives here in [place]. She is retired. She is . The patient smoked 2 packs a day for 49 years, but quit in 2007. Alcohol use, denies. Drug use, denies. REVIEW OF SYSTEMS: All systems reviewed and negative other than what is noted in the HPI. FAMILY HISTORY: Father secondary to stomach cancer, stroke, and hypertension. Mother with brain cancer in 1981. The patient has a sister with a history of breast cancer and 2 brothers with a history of heart disease. PHYSICAL EXAMINATION: VITAL SIGNS: Height 5 feet 3 inches, weight 59 kg, blood pressure 116/53, pulse 63, respirations 18, temperature 99.9, and saturations 63% on room air. GENERAL: This is a 75-year-old female who was placed on O2 per nasal cannula at 4 L to maintain saturations greater than 90%. HEENT: Head: Normocephalic, atraumatic. Ears: TMs translucent, both ears. Eyes: Pupils equal and reactive to light and accommodation. Extraocular movements intact. Nose: Mucosa pink. No lesions or drainage. Mouth: No lesions. Pharynx benign. NECK: Supple. No lymphadenopathy. LUNGS: Clear to auscultation. Breath sounds are equal but diminished. HEART: Regular rate and rhythm. ABDOMEN: Bowel sounds present. Soft, nondistended, nontender. SKIN: [place], warm, and dry. No lesions or rashes noted. EXTREMITIES: No lower extremity edema. No calf tenderness. EMERGENCY ROOM COURSE: An IV was initiated. Labs were drawn. The patient was placed on O2 per nasal cannula. Two-view chest x-ray, no acute process, pending Radiology over-read. PATIENT'S NAME: DEZ SALDAÑA [facility] AGE: 75 Y [address] ROOM: [address] [place], [place] [address] LOCATION: GPCU ADMIT DATE: 08/05/2016 ER/Outpatient Report DISCHARGE DATE: FAMILY PHYSICIAN: Ang Dickens MD ATTENDING PHYSICIAN: Ang Dickens EKG at 0813 hours: Sinus tachycardia, 106 beats per minute, nonspecific ST-T wave changes, and no acute ST elevation or depression. Repeat EKG at 1030 hours: Normal sinus rhythm at 79 beats per minute, nonspecific ST-T wave changes, no acute ST elevation or depression, and no significant change when compared to earlier EKG. She does have T-wave inversion in leads III and F and Q-wave noted in lead III. Blood cultures x2 drawn and those results are pending. Lactate 1.0. UA: Specific gravity 1.020, pH 5.0, 5-10 white cells, negative red cells, 2-5 epithelial cells. Urine culture, pending. Sodium 142, potassium 3.7, chloride 106, CO2 of 25, BUN 18, creatinine 0.7, and blood sugar 99. Liver enzymes normal. CPK 57, CK-MB 2.7, troponin I elevated at 1.740. ProBNP elevated at 3322. Repeat troponin 1.570, repeat CK-MB 2.4. D- dimer elevated at 2.52. Hemoglobin 8.8, which is diminished compared to 11.0 on July 03; hematocrit 26.3; platelets 219; and white count 5.4 with normal differential. INR 1.02. Procalcitonin 0.08. A CT PE protocol, positive for small bilateral PE, mild pulmonary edema, chronic right upper lobectomy. Abdomen and pelvis CT with IV contrast was scheduled for tomorrow, so was done today with her CT PE protocol and the metastasis mildly decreased versus 06/21/2016, otherwise stable per Dr. Matson. IMPRESSION AND PLAN: 1. Bilateral pulmonary emboli with hypoxia. The patient placed on O2. Heparin was started per DVT/PE protocol, and the patient will be admitted by her primary care physician, Dr. Dickens. Dr. Lainez was also notified. 2. Breast cancer with brain metastasis and liver metastasis. The liver metastasis is stable at this time. Dr. Lainez was notified of the CT scan. 3. Anemia. Hemoglobin is 8.8, which is down from 11.0 in June. We will check serial H and H and monitor. 4. Elevated troponin I. No acute ST elevation noted on EKG, maybe secondary to the PE. Cardiology consultation will ensue. 5. Congestive heart failure. Mild edema noted on the CT and a proBNP elevated at 3322. 6. Hypotension. The patient's blood pressure was 116/53 on arrival here to emergency room. She did have a pressure of 96 systolic, asymptomatic. We gave her a 200 mL fluid bolus followed by 100 mL/h and her blood pressure improved to 112/64. 7. All other medical problems, per the past medical history. The patient arrived at 0716 hours, was taken to the floor at 1118 hours and 40 minutes of critical care was provided with this patient. PATIENT'S NAME: DEZ SALDAÑA [facility] AGE: 75 Y [address] ROOM: [place] [address] [facility] ADMIT DATE: 08/05/2016 ER/Outpatient Report DISCHARGE DATE: FAMILY PHYSICIAN: Ang Dickens MD ATTENDING PHYSICIAN: Ang Dickens MD CAR/modl /[id number] d: 08/05/162253 t: 08/13/16 192, OUTPATIENT REPORT
--- NOTE | ~2016-08-05 | CON ---
PATIENT'S NAME: PIOTR SUSIE [facility] AGE: 75 Y [address] ROOM: [place] [address] LOCATION: GPCU ADMIT DATE: 08/05/2016 Consultation DISCHARGE DATE: FAMILY PHYSICIAN: Ang Dickens MD ATTENDING PHYSICIAN: Ang Dickens REFERRING PHYSICIAN: Coleen Ureña APRN CONSULTATION NOTE REFERRING PHYSICIAN: Dr. Jones dictating a consult for Dr. Dickens. HISTORY OF PRESENT ILLNESS: This pleasant 75-year-old, who I know from previous care was admitted this time around on 08/05/2016 with chest pain and increased weakness. She could not do her basic self-care and was brought to hospital. She was diagnosed after evaluation with pulmonary embolism and she is at the present time, on treatment and doing well. She had shortness of breath with chest pain and that is resolved. She also has the following medical issues. 1. Grade 3 infiltrative ductal carcinoma of the left breast status post lumpectomy in June 2015 status post radiation therapy. 2. In October 2015, she had metastases to liver treated with chemotherapy. 3. She also has status post hysterectomy, CA of cervix. 4. CT scan of the brain showed brain metastases in 06/2016. 5. She also had lung metastasis status post right upper lung lobectomy and undergoing radiation therapy at the present time. PHYSICAL EXAMINATION: GENERAL: Now, she feels markedly weak, much better than when she was admitted, alert and oriented x3. VITAL SIGNS: Blood pressure 151/69, temperature 97.6, pulse 96, and respiratory rate is 18. She is 5 feet 3 inches tall and weighs 61.9 kg. NEUROLOGIC: Head, normocephalic. Cranial nerves 2 through 12 are within normal limits. She can comprehend, express without difficulty. Can follow instructions, multiple steps without difficulty. Her speech is clear and not wet. Deep tendon reflexes are present and equal throughout. Sensation is within normal limits. GENITOURINARY: She has good bowel and bladder control. MEDICATIONS: 1. She is on calcium carbonate. 2. Zofran. PATIENT'S NAME: PIOTR SUSIE [facility] AGE: 75 Y [address] ROOM: [place] [address] LOCATION: GPCU ADMIT DATE: 08/05/2016 Consultation DISCHARGE DATE: FAMILY PHYSICIAN: Ang Dickens MD ATTENDING PHYSICIAN: Ang Dickens 3. Effexor. 4. Lasix. 5. Albuterol. 6. Glucagon. 7. Dextrose. 8. Glucose. 9. Insulin NovoLog mild scale. 10. Protonix. 11. Dilantin. 12. Normal saline 0.9%. 13. Nitroglycerin. 14. Decadron. 15. Tylenol. 16. Heparin sodium. ASSESSMENT AND PLAN: The patient at the present time is able to move all 4, however, right-sided upper and lower extremities are very slightly weaker in comparison to the left. She can ambulate 180 feet x1 and 250 x1 with no assistive devices. Good luis eduardo and good fluency. I feel that she has made good progress, however, if she does not continue to do so and is unable to be discharged to home, I will be happy to take her for intensive rehabilitation. I will be following alongside with you. Thank you for this referral. I did explain all this to her and her . They verbalized understanding and in agreement. MD REA HUI/linn /[id number] d: 08/08/16 1239 t: 08/09/16 1222, CONSULTATION REPORT
[~2016-08-05 07:16] MED LIST changes: +AMLODIPINE BES2.5 MG PO; +COLACE100 MG PO; +COZAAR50 MG PO; +DILANTIN100 MG PO; +DUONEB INH; +FLONASE 50 MCG/16 GM NOSE; +TYLENOL325 MG PO
[2016-08-05 08:07] LABS: BASOPHIL % 0.6 %; EOSINOPHIL % 0.2 %; HEMATOCRIT 26.3 % (33.0-46.0); HEMOGLOBIN 8.8 g/dL (10.0-15.0); IMMATURE GRANULOCYTE # 0.1 K/uL (0.0-0.3); IMMATURE GRANULOCYTE % 1.5 %; LYMPHOCYTE # 0.6 K/uL (0.8-4.0); LYMPHOCYTE % 11.6 %; MCH 32.5 pg (27.0-34.0); MCHC 33.5 gm/dL (32.0-36.5); MONOCYTE # 0.4 K/uL (0.0-1.0); MONOCYTE % 6.5 %; NEUTROPHIL # (ANC) 4.3 K/uL (1.8-7.8); NEUTROPHIL % 79.6 %; NRBC % 0 /100WBC (0-0.00); RBC 2.71 M/uL (3.50-5.50); WBC 5.4 K/uL (4.0-11.0)
[2016-08-05 08:08] LABS: PLATELET COUNT 219 K/uL (150-450); RDW-CV 14.6 % (11.9-14.6)
[2016-08-05 08:22] LABS: INR - (THERAPEUTIC) 1.02 (0.92-1.07); PROTIME 10.7 SECONDS (9.8-11.4); PTT 21 SECONDS (25-32)
[2016-08-05 08:27] LABS: ALBUMIN 2.3 gm/dL (3.5-5.0); ALK PHOS 153 IU/L (33-138); ALT 46 IU/L (12-78); ANION GAP 14.7 (10.0-19.0); AST 35 IU/L (10-40); BLOOD UREA NITROGEN 18 mg/dL (6-24); CALCIUM 7.7 mg/dL (8.5-10.5); CHLORIDE 106 mMol/L (96-110); CO2 25 mMol/L (22-32); CPK 57 IU/L (21-215); CREATININE 0.7 mg/dL (0.5-1.1); ESTIMATED GFR (MDRD EQUATION) > 60; POTASSIUM 3.7 mMol/L (3.7-5.1); SODIUM 142 mMol/L (135-145); TOTAL PROTEIN 5.5 g/dL (6.0-8.4)
[2016-08-05 08:37] LABS: TOTAL BILIRUBIN 0.3 mg/dL (0.0-1.5)
[2016-08-05 09:22] LABS: BILIRUBIN URINE NEGATIVE (NEGATIVE); BLOOD URINE 10 /UL (NEGATIVE); GLUCOSE URINE NEGATIVE (NEGATIVE); KETONE URINE 5 mg/dL (NEGATIVE); LEUKOCYTES URINE 25 /UL (NEGATIVE); NITRITE URINE NEGATIVE (NEGATIVE); PROTEIN URINE 15 mg/dL (NEGATIVE); UROBILINOGEN URINE NORMAL (NORMAL)
[2016-08-05 09:32] LABS: COLOR URINE YELLOW (YELLOW); TURBIDITY URINE CLEAR (CLEAR)
[2016-08-05 09:35] LABS: RBC URINE NEGATIVE #/HPF (NEGATIVE)
[2016-08-05 09:36] LABS: AMORPHOUS URINE 2+ (NEGATIVE); BACTERIA URINE FEW (NEGATIVE); MUCUS URINE 4+ (NEGATIVE)
[2016-08-05] MEDS ORDERED: ONDANSETRON ODT8 MG PO (12:09)
--- NOTE | 2016-08-05 12:28 | NUR ---
Pt is 75 y/o female admit for PE for . Pt alert and oriented x3. Resides at home with . No allergies. Came through ED with increased shortness breath this am. Hx cervical ca,lung ca,breast ca,recent mets to brain w radiation tx's,htn,CAD,hypercholest,sz,gerd,poor appetite,SOB,weakness. On heparin gtt per protocol. at bedside.
--- NOTE | 2016-08-05 18:58 | NUR ---
PATIENT ADMITTED TODAY FROM E.. ON 2L NC. CONTINUED HEPARIN GTT PER PROTOCOL AND NS IV INFUSION. CONTINUOUS OXYGEN MONITORING. DR JIMENEZ NOTIFIED OF ADMISSION AND ORDERED HOME MEDS. PATIENT'S AT BEDSIDE. PATIENT UP TO BR W/ STAND BY ASSIST.
--- NOTE | 2016-08-06 05:05 | NUR ---
A/O. HR 70-90s. SBP 120-130s. AFEBRILE. 2L O2. HEPARIN AT 1000 UNITS/HR. NS AT 100ML/HR. NEXT PTTHP AT 0600. 1A TO BATHROOM. DENIES PAIN. NO BM.
[2016-08-06 06:35] LABS: BASOPHIL % 0.6 %; EOSINOPHIL # 0.1 K/uL (0.0-0.5); EOSINOPHIL % 1.4 %; HEMATOCRIT 24.5 % (33.0-46.0); HEMOGLOBIN 8.3 g/dL (10.0-15.0); IMMATURE GRANULOCYTE # 0.1 K/uL (0.0-0.3); IMMATURE GRANULOCYTE % 1.8 %; LYMPHOCYTE # 0.6 K/uL (0.8-4.0); LYMPHOCYTE % 11.5 %; MCH 32.8 pg (27.0-34.0); MCHC 33.9 gm/dL (32.0-36.5); MCV 96.8 fl (83.0-98.0); MONOCYTE # 0.3 K/uL (0.0-1.0); MONOCYTE % 5.4 %; MPV 9.2 fl (9.4-12.4); NEUTROPHIL % 79.3 %; NRBC % 0 /100WBC (0-0.00); PLATELET COUNT 209 K/uL (150-450); RBC 2.53 M/uL (3.50-5.50); RDW-CV 14.4 % (11.9-14.6)
[2016-08-06 06:52] LABS: ALK PHOS 127 IU/L (33-138); ALT 34 IU/L (12-78); ANION GAP 13.7 (10.0-19.0); AST 30 IU/L (10-40); BLOOD UREA NITROGEN 9 mg/dL (6-24); CHLORIDE 111 mMol/L (96-110); CO2 24 mMol/L (22-32); CREATININE 0.4 mg/dL (0.5-1.1); ESTIMATED GFR (MDRD EQUATION) > 60; POTASSIUM 3.7 mMol/L (3.7-5.1); SODIUM 145 mMol/L (135-145); TOTAL BILIRUBIN 0.3 mg/dL (0.0-1.5)
[2016-08-06 06:54] LABS: CALCIUM 7.4 mg/dL (8.5-10.5); TOTAL PROTEIN 4.8 g/dL (6.0-8.4)
--- NOTE | 2016-08-06 14:10 | NUR ---
Introduced self and role of care management to patient and . They live [place] [facility]. She states that she is able to do all her own ADL's. Her states that he assists as needed. They plan on her returning home on discharge. She denies any needs at this time. Will continue to follow.
--- NOTE | 2016-08-06 15:50 | NUR ---
Significant Event: Alert and oriented X 3. Nasal cannula at 2L of oxygen. Resting in bed throughout shift. Left chest port with heparin infusing at 1100 units/hour. Normal saline at 100 ml turned off for blood transfusion. 2 units of blood ordered. MRI done today. ACHS accu checks 84 and 94. Up with 1 assist Pleasant and cooperative with cares. Follow up:
--- NOTE | 2016-08-06 19:31 | NUR ---
Pt having transfusion reaction. increased sob, wheezy, diarrhea, flushed. sbp 190/86 increased from 155/74. temp 98.4, resp 35 increased from 25. waiting MD call back-potthoff. transfusion stopped. lab called.
--- NOTE | 2016-08-07 04:47 | NUR ---
Pt a/o throughout night. Received 1 Unit PRBC's. half way through 2nd unit had transfusion reaction symptoms. Per lab pt did not have reaction but had all the symptoms. Had increased SOB, wheezing, diarrhea, hypertension, tachypnea, and flushed skin. MD FARTUN Howard was called and chest xray was ordered as well as labs/abg. Unable to obtain abg. Chest xray showed starts of pulmonary edema. 25mg IVP benadryl was given, pt is already on dexamethasone, and 20mg ivp lasix was given. Great results from IVP lasix- 2L measurable out from it plus multiple other voids. Pt has BSC at this time-transfers self to and from BSC any farther and she needs staff assist. Currently on heparin gtt to RFA/Wrist area at 1200- therapeutic x1. Port is currently SL. Currenly on 2-3L NC- baseline is RA. SBP reached as high at 190's during "transfusion reaction." has come back down to 140's. Pt denies pain throughout shift. Plan: PTTHP at 1000- nurse draw, ? starting halfway AC
--- NOTE | 2016-08-07 18:33 | NUR ---
Significant Event: A/0x3. SBP- 120-160s. P-80-100s. Afebrile. 4L with saturations in low to mid 90s. We are to keep >88%. R) wrist infusing heparin at 1200 units next ptthp at 2200. Up with SBA. Zofran given x1 for nausea and upset stomach. That did not eliminate the discomfor so MD ordered some PRN TUMs and that helped patients discomfort. Patients appetite and PO intake is poor. PT/OT therapies ordered for patient.
[2016-08-08 04:12] LABS: ANION GAP 14.3 (10.0-19.0); BLOOD UREA NITROGEN 10 mg/dL (6-24); CALCIUM 7.7 mg/dL (8.5-10.5); CHLORIDE 99 mMol/L (96-110); CO2 31 mMol/L (22-32); CREATININE 0.6 mg/dL (0.5-1.1); ESTIMATED GFR (MDRD EQUATION) > 60; POTASSIUM 3.3 mMol/L (3.7-5.1); SODIUM 141 mMol/L (135-145)
--- NOTE | 2016-08-08 04:19 | NUR ---
Pt a/o. VSS on 3-4 L, afbrile. Con't on heparin gtt at 1200. PTTHP's BID at 07/04. K 3.3 this am. SBA x1 to RR/BSC. Family helps when here. Port is positional. Zofran x1 ivp noted releif. No c/o pain. Plan: Con't DVT Pathway. ? when starting oral a/c medication , d/c plan?
[2016-08-08 04:31] LABS: BASOPHIL % 0.5 %; EOSINOPHIL # 0.1 K/uL (0.0-0.5); EOSINOPHIL % 1.9 %; HEMOGLOBIN 10.9 g/dL (10.0-15.0); IMMATURE GRANULOCYTE # 0.1 K/uL (0.0-0.3); IMMATURE GRANULOCYTE % 0.9 %; LYMPHOCYTE # 0.5 K/uL (0.8-4.0); LYMPHOCYTE % 8.1 %; MONOCYTE # 0.3 K/uL (0.0-1.0); MONOCYTE % 4.6 %; MPV 9.2 fl (9.4-12.4); NEUTROPHIL # (ANC) 4.8 K/uL (1.8-7.8); NRBC % 0 /100WBC (0-0.00); WBC 5.7 K/uL (4.0-11.0)
[2016-08-08 04:33] LABS: HEMATOCRIT 31.9 % (33.0-46.0); MCH 30.7 pg (27.0-34.0); MCHC 34.2 gm/dL (32.0-36.5); MCV 89.9 fl (83.0-98.0); PLATELET COUNT 253 K/uL (150-450); RBC 3.55 M/uL (3.50-5.50); RDW-CV 17.4 % (11.9-14.6)
--- NOTE | 2016-08-08 11:44 | NUR ---
A-INTERDISCIPLINARY REFERRAL PT HAS BREAST CA W/METS TO LIVER AND BRAIN; RECENTLY FINISHED A 2 WEEKS OF RADIATION FOR THE BRAIN METS. PER RN REPORT, PT HAS BEEN EATING VERY LITTLE SINCE ADMIT. PT HAS TRIED ENSURE ENLIVE AND ENSURE CLEAR, BUT DID NOT TOLERATE IT. HT: 63 IN. CBW: 61.9 KG; WT IS DOWN 2% SINCE 06/2016 ADMIT. BMI: 24.1 LABS: NA 141, K+ 3.3, GLU 87, BUN 10, INSECTICIDE EXPERT 0.6, ALB 2.0 MEDS: TUMS, ZOFRAN, EFFEXOR, LASIX, NOVOLOG (MILD SS), PROTONIX, DILANTIN, ZOFRAN, DECADRON DIET RX: REGULAR. MINIMAL PO INTAKE EST NUTR NEEDS: 4614-4514 KCALS (28-32 KCALS/KG) 74-89 GM PROTEIN (1.2-1.4 GM/KG) 1 ML FLUID/KCAL VISITED W/PT AND PT'S DAUGHTER. PT'S DAUGHTER IS BRINGIN IN Carmine (A HIGH PROTEIN SUPPLEMENT DRINK) FOR THE PT. IT IS DILUTED IN HALF WITH ICE AND WATER D/T PT'S DISLIKE OF SWEET THINGS. IF PT DRINKS TWO OF THOSE A DAY IT WILL PROVIDE 26 GM PROTEIN/240 KCALS. PT'S DAUGHTER ALSO BROUGHT IN SURINAMESE YOGURT THAT PT LIKES. PT STATES THAT SHE LIKES CHOCOLATE ICE CREAM; DISCUSSED SUPPELMENT OPTION OF CHOCOLATE MAGIC CUP AND PT WAS AGREEABLE TO TRYING THAT. PT REPORTS THAT SHE FEEL NAUSEOUS ALL THE TIME. SHASHI NOTED, ALONG WITH TUMS. ENCOURAGED PT TO TRY AND EAT SMALL MEALS THROUGH OUT THE DAY. D-AT NUTRITION RISK W/INADEUQUATE NUTRIENT INTAKE R/T ALTERED GI FXN AEB INTAKE RECORDS, NAUSEA, PT REPORT. ALSO AT NUTRITION RISK W/INCREASED NUTRIENT NEEDS R/T CATABOLIC DZ PROCESS AEB DX, WT LOSS. I-1)MAGIC CUP BID 2)PT'S DAUGHTER WILL CONTINUE TO BRING IN THE CORE POWER AND SURINAMESE YOGURT M/E-GOAL:PT WILL MEET >/=50% OF NUTRIENT NEEDS BY NEXT F/U 1)WILL F/U WITH PT RE: TOLERANCE OF THE CHOCOLATE MAGIC CUP TOMORROW 2)F/U PO INTAKE, SUPPLEMENT, WT, GI, AND POC IN 3-5 DAYS 3)ASSIST NEEDED
--- NOTE | 2016-08-08 17:14 | NUR ---
Significant Event: A/Ox3. [id number]. P-90-110s. Afebrile. 4L NC with saturations in low 90s. L) chest port saline locked. R) wrist infusing heparin at 1200ml/hr. Next ptthp with AM labs. Up with SBA/family assist. 4BM this shift. Patient is had zofran x2 for nausea last dose at 1330. Poor appetite.
[2016-08-09 03:09] LABS: ANION GAP 11.5 (10.0-19.0); BLOOD UREA NITROGEN 9 mg/dL (6-24); CALCIUM 7.7 mg/dL (8.5-10.5); CHLORIDE 101 mMol/L (96-110); CO2 32 mMol/L (22-32); CREATININE 0.5 mg/dL (0.5-1.1); ESTIMATED GFR (MDRD EQUATION) > 60; POTASSIUM 3.5 mMol/L (3.7-5.1); SODIUM 141 mMol/L (135-145)
[2016-08-09 03:57] LABS: HEMATOCRIT 29.4 % (33.0-46.0); HEMOGLOBIN 9.8 g/dL (10.0-15.0); MCH 30.7 pg (27.0-34.0); MCHC 33.3 gm/dL (32.0-36.5); MCV 92.2 fl (83.0-98.0); MPV 9.3 fl (9.4-12.4); PLATELET COUNT 237 K/uL (150-450); RBC 3.19 M/uL (3.50-5.50); RDW-CV 16.7 % (11.9-14.6); WBC 4.4 K/uL (4.0-11.0)
--- NOTE | 2016-08-09 04:24 | NUR ---
Pt a/o x4. vss on 3-4L-desats with ambulation. afebrile. nsr. Chest port to [place] SL. R Wrist IV for heparin-therapeutic x2 days moved to daily PTTHP. poor appetite. zofran at hs about 1 hour prior to meds-seemed to help nausea. Chrissie thinks nausea/new tremor in R hand may be d/t effexor. Wants to monitor a couple more days on effexor before deciding to stop it. Plan: Con't DVT pathway-? start ltac
[2016-08-09 05:09] LABS: ABSOLUTE NEUTROPHIL CT (ANC) 3.7 K/uL (1.8-7.8); LYMPHOCYTE # 0.4 K/uL (0.8-4.0); LYMPHOCYTE % 8 %; MONOCYTE # 0.2 K/uL (0.0-1.0); SEGMENTED NEUTROPHIL # 3.7 K/uL (1.8-7.8); SEGMENTED NEUTROPHIL % 85 %
[2016-08-09 11:08] LABS: BICARBONATE 37.6 mmol/L (18.0-23.0); PCO2 44 mmHg (35-45); PO2 74 mmHg (80-90)
--- NOTE | 2016-08-09 15:52 | NUR ---
Significant Event: VSS AND 4L/NC. AFEBRILE. DENIES PAIN. VERY WEAK AND SOB WITH ACTIVITY. GI AND PULOMONARY CONSULTS TODAY. PLAN FOR EGD TMRW AROUND 0900; TO D/C HEPARIN GTT AT 0500 AND THEN RESTART 3 HRS AFTER SHE RETURNS FROM EGD WITHOUT BOLUS. ABG AND BILATERAL LOWER EXTREM DUPLEX SCANS WERE DONE. TUMS X1 PER REQUEST FOR NAUSEA, HAS NO APPETITE. DIAMOX GIVEN X1 THIS AFTERNOON. DILANTIN DOSE WAS INCREASED AND EFFEXOR DECREASED. REPOSITIONED Q2H AND ALOE TO BUTTOCKS. FAMILY UPDATED ON POC. Follow up: CONTINUE PLAN OF CARE.
--- NOTE | 2016-08-09 16:38 | NUR ---
Chart reviewed. Patient sleeping.
[2016-08-10 03:57] LABS: ALBUMIN 2.4 gm/dL (3.5-5.0); ANION GAP 12.6 (10.0-19.0); BLOOD UREA NITROGEN 9 mg/dL (6-24); CALCIUM 8.4 mg/dL (8.5-10.5); CHLORIDE 102 mMol/L (96-110); CO2 28 mMol/L (22-32); CREATININE 0.6 mg/dL (0.5-1.1); ESTIMATED GFR (MDRD EQUATION) > 60; PHOSPHORUS 3.7 mg/dL (2.5-4.9); POTASSIUM 3.6 mMol/L (3.7-5.1); SODIUM 139 mMol/L (135-145)
--- NOTE | 2016-08-10 04:45 | NUR ---
Significant Event: A/0X3. RESTED IN BED ALL OF SHIFT. TURNS SELF. SBA UP TO BR. AFEBRILE. VSS ON 4L. DESATS WITH ACTVITY BUT REBOUNDS QUICKLY. DENIES PAIN. BEEN NPO SINCE MIDNIGHT FOR EDG THIS AM AT 0900. PERMITS SIGNED AND ON CHART. HEPARIN GTT OFF AT 0500. RESTART 3 HOURS AFTER SHE RETURNS TO THE FLOOR WITHOUT BOLUS. IV TO R) WRIST SL. R) CHEST PORT SL. FLUSHES WITH GOOD BLOOD RETURN. VOIDS FINE. PATIENT REFUSED SUPPER LAST NIGHT. PATIENT JUST FEELS VERY NAUSEAOUS. NO EMESIS. ZOFRAN GIVEN X2. LAST DOSE WAS AT 0243. HAD A BM X2. Follow up: CONTINUE WITH PLAN OF CARE. EDG THIS AM.
--- NOTE | 2016-08-10 11:55 | NUR ---
Significant Event:A/O X 3. Ambulates with SBA, gets SOB with activity. UP to the bathroom this AM for hygiene by self. Remains on 4L O2/NC. NPO since midnight. Saline locked. Went to [facility] for EGD @ 0830 and back at 1100. EGD NOT completed because anesthesia decided the risks outweighed the benefits. Patient back to the room @ 1100. Called Dr Green and left message with his nurse to call me back for order to restart meds and get a diet. 1100 blood sugar was 89. Follow up:[place] filter?
--- NOTE | 2016-08-11 04:31 | NUR ---
Significant Event: A/0X3. DROWSY THIS SHIFT. RESTED IN BED ALL OF SHIFT. TURNS SELF. SBA UP TO BR. AFEBRILE. VSS ON 2L. STILL SOB WITH ACTIVITY BUT REBOUNDS QUICKLY. 4L OF 02 WTIH ACTIVITY. DENIES PAIN. IV TO R) WRIST HAS HEPARIN RUNNING AT 1300 UNITS/H. NEXT PTTHP. IS AT 1030. PORT TO R) CHEST IS SL. FLUSHES WITH GOOD BLOOD RETURN. REFUSED SUPPER. NOT EATING OR DRINKING MUCH. ENCOURAGED PATIENT TO DRINK MORE BUT SAYS NOTHING SOUNDS GOOD. SCHEDULED REGLAN IS HELPING WITH THE NAUSEA. NO PRN ZOFRAN GIVEN THIS SHIFT. HAD A BM X1 THE SHIFT. VOIDED FINE. POSSIBLY PLACEMENT OF IVC FILTER THIS AM. PHYSICANS STILL DISCUSSING IT OVER BUT DR. GRANADOS AWARE OF CONSULT. Follow up: CONTINUE WITH PLAN OF CARE.
--- NOTE | 2016-08-11 17:04 | NUR ---
Significant Event: VSS AND 3L/NC, AFEBRILE. DENIES PAIN. TUMS X1 FOR NAUSEA, REFUSES ZOFRAN; ORDER OBTAINED FROM DR EASTMAN THIS AFTERNOON FOR SCOPALAMINE PATCH. NO APPETITE, DOES TAKE IN SOME FLUIDS. VOIDS WITH ADEQUATE UOP. HAD A BM. RESTS COMFORTABLY DOWN FOR IVC FILTER PLACEMENT THIS AFTERNOON WITH DR. GRANADOS; RT)GROIN VENOUS SITE WITH GAUZE AND TEGADERM REMAINS SOFT AND C/D/I. REPOSITIONED Q2H. Follow up: CONTINUE PLAN OF CARE; ? D/C PLANNING IN THE NEXT COUPLE OF DAYS VS [facility].
--- NOTE | 2016-08-12 04:40 | NUR ---
Significant event: A/O x 3. All VSS with no c/o pain T/O the night. Port to right chest that is due to be changed today. Also has PIV in right wist that is SL'd. Continues to be on 3L NC with sats in the high 90's. Plan for Possible trnasfer to [facility].
[2016-08-12 05:49] LABS: ALBUMIN 2.5 gm/dL (3.5-5.0); ANION GAP 13.6 (10.0-19.0); BLOOD UREA NITROGEN 21 mg/dL (6-24); CALCIUM 8.9 mg/dL (8.5-10.5); CHLORIDE 98 mMol/L (96-110); CO2 30 mMol/L (22-32); CREATININE 0.6 mg/dL (0.5-1.1); ESTIMATED GFR (MDRD EQUATION) > 60; PHOSPHORUS 3.4 mg/dL (2.5-4.9); POTASSIUM 3.6 mMol/L (3.7-5.1); SODIUM 138 mMol/L (135-145)
[2016-08-12 05:53] LABS: BASOPHIL # 0.1 K/uL (0.0-0.2); BASOPHIL % 0.9 %; EOSINOPHIL # 0.2 K/uL (0.0-0.5); EOSINOPHIL % 3.9 %; HEMATOCRIT 34.3 % (33.0-46.0); HEMOGLOBIN 11.7 g/dL (10.0-15.0); IMMATURE GRANULOCYTE # 0.1 K/uL (0.0-0.3); IMMATURE GRANULOCYTE % 1.1 %; LYMPHOCYTE # 0.7 K/uL (0.8-4.0); LYMPHOCYTE % 11.8 %; MCH 30.7 pg (27.0-34.0); MCHC 34.1 gm/dL (32.0-36.5); MONOCYTE # 0.4 K/uL (0.0-1.0); MONOCYTE % 7.7 %; MPV 9.2 fl (9.4-12.4); NEUTROPHIL # (ANC) 4.2 K/uL (1.8-7.8); NEUTROPHIL % 74.6 %; NRBC % 0 /100WBC (0-0.00); PLATELET COUNT 221 K/uL (150-450); RBC 3.81 M/uL (3.50-5.50); RDW-CV 15.7 % (11.9-14.6); WBC 5.6 K/uL (4.0-11.0)
--- NOTE | 2016-08-12 09:57 | NUR ---
A - NUTRITION F/U. K+ 3.6, GLU 82, BUN/MANAGER SECONDARY 21/0.6, ALB 2.5. DIET: REGULAR W/ ICE CREAM BID; GABRIELA BRINGING IN CORE SUPPLEMENT AND HAITIAN YOGURT...PT LOOKS AND FEELS BETTER THIS AM; TRIED SIPS OF SUPPLEMENT AND BITES OF YOGURT BUT STATES IT DOESN'T TASTE GOOD. PT DID EACH HALF A BAGEL THIS AM AND CARTON OF 2% MILK. SUGGESTED PT ORDER WHOLE MILK AND TRY COTTAGE CHEESE, CHEESE, AND PB SINCE SHE DOES NOT LIKE SWEETS. D - AT RISK W/ INADEQUATE ORAL INTAKE R/T NAUSEA AND TASTE CHANGES AEB INTAKE RECORD. I - GOAL: 25-50% INTAKE BY NEXT REVIEW. M/E - IF INTAKE DOES NOT IMPROVE OVER WEEKEND MAY NEED TO CONSIDER EN. WILL F/U IN 3-5 DAYS.
--- NOTE | 2016-08-12 13:09 | NUR ---
Social visit with patient and her today. We discussed discharge plans. They would like to go to inpatient rehab for a few weeks to gain her strength. I explained that I would check with Sharon BAUMANN on inpatient rehab to see when they think they may have a a bed. I place a call venkata Sharon and she will look at patient and call me back.
--- NOTE | 2016-08-12 13:15 | NUR ---
Received call from Sharon on [facility]. They torres take patient on Tuesday at 0900. I called and updated Dr Dickens who is in agreement with admit to [facility] on Sunday 08/13. I called and updated Mellissa who will update ga and her .
--- NOTE | 2016-08-12 16:41 | NUR ---
Significant Event:VSS AFEBRILE. HR'S 100'S TO 120'S. ON 2L PER NC IN THE 90'S. DENIES PAIN. AMBULATED IN [place]INA X 2 WITH PT. TO [facility] AT 0900 ALEXANDRA. FAMILY IN ROOM. PATIENT COOPERATIVE WITH CARES. Follow up:
--- NOTE | 2016-08-13 03:33 | NUR ---
Pt to go to [facility] today at 0930. Report already called. VSS on 2L, afebrile. SBA. R Chest port needs reaccessed today. No c/o pain. still c/o mild nausea but no vomitting. Scopalamine patch to behind R ear.
== END 2016-08-13 10:18 | DRG 166 ==
LOC: GMED 07:16 → GPCU 10:58
PROVIDERS: Family Medicine; Surgery Vascular Surgery; Thoracic Surgery (Cardiothoracic Vascular Surgery); ADMIT Family Medicine
PROC: 30233N1 Transfusion of Nonautologous Red Blood Cells into Peripheral Vein, Percutaneous Approach (ICD-10-PCS; principal; 2016-08-06)
PROC: 06H03DZ Insertion of Intraluminal Device into Inferior Vena Cava, Percutaneous Approach (ICD-10-PCS; 2016-08-11)
DX: I26.09 Other pulmonary embolism with acute cor pulmonale (principal); J96.01 Acute respiratory failure with hypoxia; I11.0 Hypertensive heart disease with heart failure; C78.01 Secondary malignant neoplasm of right lung; J90 Pleural effusion, not elsewhere classified; I50.9 Heart failure, unspecified; C79.31 Secondary malignant neoplasm of brain; E44.1 Mild protein-calorie malnutrition; I82.402 Acute embolism and thrombosis of unspecified deep veins of left lower extremity; I25.10 Atherosclerotic heart disease of native coronary artery without angina pectoris; E78.5 Hyperlipidemia, unspecified; J44.9 Chronic obstructive pulmonary disease, unspecified; I73.9 Peripheral vascular disease, unspecified; Z90.2 Acquired absence of lung [part of]; Z90.710 Acquired absence of both cervix and uterus; Z92.3 Personal history of irradiation; Z85.41 Personal history of malignant neoplasm of cervix uteri; Z85.05 Personal history of malignant neoplasm of liver; Z85.3 Personal history of malignant neoplasm of breast; Z87.891 Personal history of nicotine dependence
CPT/HCPCS: C1880; J0690; J1200; J1644; J1940; J2250; J2405; J3010; J3480; J7030; J7040; J7050; P9016; Q9967

== ENCOUNTER 2016-08-13 10:01 | Inpatient (IN) | payer MEDICARE, OTHER ==
[~2016-08-13] VITALS: Ht 160 cm; Wt 56.9 kg
--- NOTE | ~2016-08-13 | HP ---
PATIENT'S NAME: DEZ SALDAÑA [facility] AGE: 75 Y [address] ROOM: [address] [place] [address] LOCATION: [facility] ADMIT DATE: 08/13/2016 History & Physical DISCHARGE DATE: FAMILY PHYSICIAN: Ang Dickens MD ATTENDING PHYSICIAN: Lokesh Chadwick DATE OF SERVICE: HISTORY OF PRESENT ILLNESS: This 75-year-old lady who I know from previous care is admitted to rehab unit at [facility] on 08/13/2016 for continuous medical treatment and intensive rehabilitation with marked generalized weakness and falling, plus being unable to do her activities of daily living and self-care. She was diagnosed upon admission with pulmonary embolism and was initiated on treatment. During her stay, on the other side, she did undergo on 08/11/2016, an inferior vena cava filter placement because we were unable to anticoagulant due to metastatic disease. I saw her on consult on 08/08/2016 and I did recommend that she had not improved enough to admit her for intensive rehabilitation for about 2 weeks or so, aiming to discharge on modified independence, and on day of admission on 08/13/2016 upon re-evaluation, I feel that she would benefit from intensive rehabilitation of about 2 weeks. MEDICAL HISTORY: Extensive as follows: 1. 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 2. In October 2015, she had metastases to the liver, treated with chemotherapy. 3. She had status post hysterectomy for CA of cervix as per history. 4. 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 5. Status post lung metastases, status post right upper lung lobectomy and undergoing radiation therapy. 6. She is also with depression. 7. Status post heart catheterization in 2013 and 2014. 8. Bilateral lower extremities DVT, recent. 9. Status post balloon angioplasty in March 04. 10. Bilateral cataract surgery extraction 2014. 11. Status post tonsillectomy and appendectomy. At the present time, she is alert oriented. PATIENT'S NAME: DEZ SALDAÑA [facility] AGE: 75 Y [address] ROOM: [address] [place] [address] LOCATION: [facility] ADMIT DATE: 08/13/2016 History & Physical DISCHARGE DATE: FAMILY PHYSICIAN: Ang Dickens MD ATTENDING PHYSICIAN: Lokesh Chadwick VITAL SIGNS: Blood pressure 130/68, temperature 98, pulse 96, respiration rate 18. She is 5 feet tall and weighs 56.8 kg. ALLERGIES: NO KNOWN ALLERGIES. MEDICATIONS: She is on the following medications, 1. Lasix 20 mg p.o. in the morning. 2. Dexamethasone 2 mg p.o. 4 times daily. 3. Reglan 5 mg p.o. before meals and at bedtime. 4. Prilosec 20 mg p.o. b.i.d. 5. Dilantin 300 mg p.o. at bedtime. 6. Dilantin 100 mg p.o. at 0700 and 1200 hours. 7. Scopolamine 1.5 mg transdermal is q.7 hours. 8. Effexor 37.5 mg p.o. daily. 9. Albuterol inhalation one each inhalation 4 times daily. 10. Tylenol 650 q.6 hours, do not exceed acetaminophen 4 g q.24 hours. 11. Tums 500-1000 p.o. q.4 hours as needed. 12. Nitrostat 0.4 mg sublingually p.r.n. 13. Zofran 4 mg IV q.6 hours as needed. 14. Sodium chloride 0.9% IV per protocol. 15. Albuterol inhalation q.4 hours p.r.n. 16. Aspirin 81 mg p.o. daily. ASSESSMENT AND PLAN: She is now put on intensive PT, OT, and Speech 3 hours per day, 15 hours per week for the coming 4 weeks. I will add Megace to her medication. She has poor appetite. 1. She is otherwise on regular diet. Noted at the present time on PlexiPulses. 2. In the a.m., we send for UA, CBC, and CMS, and prealbumin and we will follow. 3. We will keep Dr. Soni, and Dr. Arrington, and Dr. Dickens to follow as necessary. All the above was explained to her in detail. She verbalized understanding and agreement. LOKESH CHADWICK MD WMS/modl PATIENT'S NAME: DEZ SALDAÑA [facility] AGE: 75 Y [address] ROOM: [place] [address] LOCATION: [facility] ADMIT DATE: 08/13/2016 History & Physical DISCHARGE DATE: FAMILY PHYSICIAN: Ang Dickens MD ATTENDING PHYSICIAN: Lokesh Chadwick /[id number] D: [id number] T: [id number] HISTORY & PHYSICAL
--- NOTE | ~2016-08-13 | CON ---
PATIENT'S NAME: DEZ SALDAÑA [facility] AGE: 75 Y [address] ROOM: [address] [place], [place] [address] LOCATION: [facility] ADMIT DATE: 08/13/2016 Consultation DISCHARGE DATE: 08/18/2016 FAMILY PHYSICIAN: Ang Dickens MD ATTENDING PHYSICIAN: Lokesh Chadwick DATE OF CONSULTATION: 08/17/2016 REFERRING PHYSICIAN: Gene Sharp MD Team members reporting include Dr. Chadwick; Sharon Jara, 7th grade social studies teacher; Anisha Carmichael, RN; Juanita Chavez, PT; Bonita Perez, PT; Rosalina Smith, OT; Joann Osuna, Speech Therapy; Khadijah Jeffers, therapeutic rec; and Sister Janet Oakley, Pastoral Care. CURRENT STATUS: Dipti Hernandez is a 75-year-old woman admitted to our inpatient rehab unit on August 13, 2016 with bilateral PEs in her lungs. The patient has shortness of breath and hypoxia. She has a history of cancer of the breast. She was recently diagnosed with METS to the brain following some seizure activity. The patient is on a regular diet. The patient's daughter is bringing in Persian yogurt, providing chocolate ice cream twice a day. Does not like other supplements. The patient is on Megace. The patient's prealbumin is currently 20. The patient can complete all of her transfers independently. She can walk 150 feet at standby assistance. She can climb 12 stairs at mod I. She can negotiate a curve at contact guard assistance and a ramp at standby assistance. Her oxygen saturations have been good. The patient can dress her upper and lower body independently; grooming independent; bathing standby; toilet and shower transfers, standby; and toileting, standby. She can complete home management tasks at standby. She has met 01/31 OT goals set for mod I to independence. Comprehension is at mod I; language and expression, independent. Memory minimal assistance and problem solving, standby to mod I. The patient has been given handicap parking permit. The patient likes to visit with pastoral care. DISCHARGE PLAN: The patient is receiving 3 hours of PT, OT, and speech Tuesday through Tuesday. The patient has daily rehab, nursing, and physiatry involvement as well therapeutic recreational services 4 days per week. The patient has shown functional improvement and is progressing. Please see her plan of care for specific goals. Plan is for patient to discharge on Thursday August 18, 2016. The patient will have outpatient therapy services. PATIENT'S NAME: DEZ SALDAÑA [facility] AGE: 75 Y [address] ROOM: [address] [place], [place] [address] LOCATION: [facility] ADMIT DATE: 08/13/2016 Consultation DISCHARGE DATE: 08/18/2016 FAMILY PHYSICIAN: Ang Dickens MD ATTENDING PHYSICIAN: Lokesh Chadwick FOR LOKESH CHADWICK MD TD/modl /[id number] d: 08/30/16 1434 t: 09/01/16 0914, CONSULTATION REPORT
--- NOTE | ~2016-08-13 | PUL ---
PATIENT'S NAME: DEZ SALDAÑA [facility] AGE: 75 Y [address] ROOM: [address] [address] LOCATION: [facility] ADMIT DATE: 08/13/2016 Pulmonary DISCHARGE DATE: 08/18/2016 FAMILY PHYSICIAN: Ang Dickens MD ATTENDING PHYSICIAN: Lokesh Jones NAME OF PROCEDURE: Overnight Trend Oximetry DATE OF PROCEDURE: August 17 to August 18, 2016 REASON FOR EXAM: Nocturnal hypoxemia RESULTS: The total record time was 10 hours, 27 minutes, and 4 seconds. The total valid sampling time was 9 hours, 45 minutes, and 32 seconds. The highest pulse was 129 beats per minute, the mean pulse was 87 beats per minute. The highest SpO2 was 97%, lowest SpO2 was 81% with mean SpO2 of 90.4%. The total time with SpO2 less than 89% was 3 hours and 4 seconds, which is 30.8% of the total valid sampling time. The desaturation event index was 20.3. PHYSICIAN INTERPRETATION: The patient qualifies for nighttime oxygen by Medicare critical category one, the high desaturation event index indicates possible obstructive sleep apnea. Clinical correlation is recommended. Thank you for allowing me to participate in care of this patient. MD MACHELLE PRICE/cherelle /[id number] dtt: 08/30/16 1043 , Gabino Strange dtd: 08/19/16 1152
--- NOTE | ~2016-08-13 | DS ---
PATIENT'S NAME: DEZ SALDAÑA [facility] AGE: 75 Y [address] ROOM: [address] [place], [place] [address] LOCATION: [facility] ADMIT DATE: 08/13/2016 Discharge Summary DISCHARGE DATE: 08/18/2016 FAMILY PHYSICIAN: Ang Dickens MD ATTENDING PHYSICIAN: Lokesh Chadwick This 75-year-old pleasantful lady was admitted to Rehab Unit at [facility], [place], [place] on 08/13/2016, is discharged to home on 08/18/2016. 1. She was markedly weak with unstable gait at risk of falling, status post DVT recently, and did undergo an inferior vena cava filter placement. Details on record. 2. She is at the present time alert, oriented, able to ambulate up to 150 feet with standby assistance, and on oxygen. 3. She is at the present time going to be on outpatient basis with PT/OT 3 times per week for the coming 3 weeks and I will see her thereafter. 4. She will follow with Dr. Dickens, her family physician, as soon as possible. 5. Follow with Dr. Soni as he sees fit. She is on the following medications: 1. Aspirin 81 mg p.o. daily. 2. Decadron 2 mg 4 times daily. 3. Lasix 20 mg in the morning. 4. Megace 400 mg p.o. daily. 5. Reglan 5 mg before meals and bedtime. 6. Protonix 40 mg twice daily. 7. Dilantin 300 mg p.o. at bedtime. 8. Dilantin 100 mg b.i.d. at 0700 and 1200 daily. 9. Scopolamine transderm 1.5 every 72 hours. 10. Effexor 37.5 mg daily. 11. Tylenol 650 q.6 h., give 36 of them, do not exceed acetaminophen 4 g q.24 h. FINAL DIAGNOSES: 1. Unstable gait. 2. Dependent activities of daily self-care with marked generalized weakness and falling. 3. Bilateral lower extremity deep vein thrombosis, status post pulmonary embolism with recent inferior vena cava filter placement on 08/11/2016. 4. Grade 3 infiltrative ductal cell carcinoma of the left breast, status post lumpectomy on June 2015 plus radiation. 5. Metastases to the liver, status post chemotherapy. 6. Hysterectomy, carcinoma cervix. 7. Status post metastasis to brain detected in June of 2016. 8. Status post lung metastases, status post right upper lobe lobectomy, and PATIENT'S NAME: DEZ SALDAÑA [facility] AGE: 75 Y [address] ROOM: [place] [address] LOCATION: [facility] ADMIT DATE: 08/13/2016 Discharge Summary DISCHARGE DATE: 08/18/2016 FAMILY PHYSICIAN: Ang Dickens MD ATTENDING PHYSICIAN: Lokesh Chadwick followed by radiation. 9. Depression. 10. Bilateral lower extremity deep vein thrombosis. 11. Status post balloon angioplasty in March 04, 2016. 12. Bilateral cataract surgery in 2014. 13. Status post appendectomy and tonsillectomy per history. 14. Seizure disorder. The patient is not to drive and/or operate any mechanical device until she is reevaluated. All the above was explained to her and her in detail. They verbalized understanding and agreement. LOKESH CHADWICK MD WMS/modl /[id number] d: 08/19/16 0355 t: 08/19/16 0754, DISCHARGE SUMMARY
[~2016-08-13 10:01] MED LIST changes: +ONDANSETRON ODT8 MG PO
[2016-08-14 01:17] LABS: BILIRUBIN URINE NEGATIVE (NEGATIVE); BLOOD URINE 10 /UL (NEGATIVE); COLOR URINE YELLOW (YELLOW); GLUCOSE URINE NEGATIVE (NEGATIVE); KETONE URINE 5 mg/dL (NEGATIVE); LEUKOCYTES URINE 25 /UL (NEGATIVE); NITRITE URINE NEGATIVE (NEGATIVE); PROTEIN URINE 15 mg/dL (NEGATIVE); TURBIDITY URINE CLEAR (CLEAR); UROBILINOGEN URINE NORMAL (NORMAL)
[2016-08-14 01:26] LABS: RBC URINE 0-2 #/HPF (NEGATIVE)
[2016-08-14 01:27] LABS: BACTERIA URINE FEW (NEGATIVE); MUCUS URINE 2+ (NEGATIVE)
[2016-08-14 05:41] LABS: ALBUMIN 2.5 gm/dL (3.5-5.0); ALK PHOS 177 IU/L (33-138); ALT 32 IU/L (12-78); ANION GAP 13.6 (10.0-19.0); AST 44 IU/L (10-40); BLOOD UREA NITROGEN 39 mg/dL (6-24); CALCIUM 8.6 mg/dL (8.5-10.5); CHLORIDE 98 mMol/L (96-110); CO2 31 mMol/L (22-32); CREATININE 0.8 mg/dL (0.5-1.1); ESTIMATED GFR (MDRD EQUATION) > 60; POTASSIUM 3.6 mMol/L (3.7-5.1); SODIUM 139 mMol/L (135-145)
[2016-08-14 05:43] LABS: TOTAL BILIRUBIN 0.5 mg/dL (0.0-1.5)
[2016-08-14 05:44] LABS: BASOPHIL # 0.1 K/uL (0.0-0.2); BASOPHIL % 1.2 %; EOSINOPHIL # 0.2 K/uL (0.0-0.5); EOSINOPHIL % 3.9 %; HEMATOCRIT 33.8 % (33.0-46.0); HEMOGLOBIN 11.7 g/dL (10.0-15.0); IMMATURE GRANULOCYTE # 0.1 K/uL (0.0-0.3); LYMPHOCYTE % 17.3 %; MCH 31.1 pg (27.0-34.0); MCHC 34.6 gm/dL (32.0-36.5); MCV 89.9 fl (83.0-98.0); MONOCYTE # 0.6 K/uL (0.0-1.0); MONOCYTE % 9.4 %; MPV 9.8 fl (9.4-12.4); NEUTROPHIL % 66.2 %; NRBC % 0 /100WBC (0-0.00); PLATELET COUNT 196 K/uL (150-450); RBC 3.76 M/uL (3.50-5.50); RDW-CV 15.4 % (11.9-14.6)
[2016-08-18] MEDS ORDERED: LASIX20 MG PO (09:57)
[2016-08-18] MEDS ORDERED: MEGACE SUSP40 MG/ML PO (09:59)
[2016-08-18] MEDS ORDERED: REGLAN5 MG PO (10:00)
[2016-08-18] MEDS ORDERED: PROTONIX40 MG PO (10:01)
[2016-08-18] MEDS ORDERED: DILANTIN100 MG PO (10:03)
[2016-08-18] MEDS ORDERED: DILANTIN100 MG (10:03)
[2016-08-18] MEDS ORDERED: TRANSDERM SCOP1.5 MG TRANS (10:05)
[2016-08-18] MEDS ORDERED: EFFEXOR75 MG PO (10:06)
[2016-08-18] MEDS ORDERED: OXYGEN M-15 INH (10:12)
== END 2016-08-18 11:55 | disposition disaster alternative care site (69) | DRG 299 ==
LOC: GIRP 10:01
PROVIDERS: ADMIT Physical Medicine & Rehabilitation
PROC: F07M6ZZ Therapeutic Exercise Treatment of Musculoskeletal System - Whole Body (ICD-10-PCS; principal; 2016-08-13)
PROC: F08Z4ZZ Home Management Treatment (ICD-10-PCS; principal; 2016-08-13)
PROC: F06Z6ZZ Communicative/Cognitive Integration Skills Treatment (ICD-10-PCS; principal; 2016-08-13)
PROC: F07Z9ZZ Gait Training/Functional Ambulation Treatment (ICD-10-PCS; principal; 2016-08-13)
DX: I82.4Z3 Acute embolism and thrombosis of unspecified deep veins of distal lower extremity, bilateral (principal); I26.99 Other pulmonary embolism without acute cor pulmonale; C78.01 Secondary malignant neoplasm of right lung; C78.7 Secondary malignant neoplasm of liver and intrahepatic bile duct; C79.31 Secondary malignant neoplasm of brain; R53.1 Weakness; R29.6 Repeated falls; Z85.3 Personal history of malignant neoplasm of breast; Z85.41 Personal history of malignant neoplasm of cervix uteri; I25.10 Atherosclerotic heart disease of native coronary artery without angina pectoris; G40.909 Epilepsy, unspecified, not intractable, without status epilepticus; R26.9 Unspecified abnormalities of gait and mobility; F32.9 Major depressive disorder, single episode, unspecified; R25.1 Tremor, unspecified; Z92.3 Personal history of irradiation; Z92.21 Personal history of antineoplastic chemotherapy; Z79.82 Long term (current) use of aspirin; Z79.899 Other long term (current) drug therapy; Z90.2 Acquired absence of lung [part of]; J44.9 Chronic obstructive pulmonary disease, unspecified
CPT/HCPCS: J1642

== ENCOUNTER 2016-08-22 11:55 | Inpatient (IN) | payer MEDICARE, OTHER ==
[~2016-08-22] VITALS: Ht 160 cm; Wt 60.4 kg
--- NOTE | ~2016-08-22 | ER ---
PATIENT'S NAME: PIOTR SUSIE [facility] AGE: 75 Y [address] ROOM: [place] [address] LOCATION: [facility] ADMIT DATE: 08/22/2016 ER/Outpatient Report DISCHARGE DATE: FAMILY PHYSICIAN: Ang Dickens MD ATTENDING PHYSICIAN: Lisa MCNALLY Time of Arrival: 1155 hours. Time of Evaluation: 1155 hours. CHIEF COMPLAINT: Chest pain. HISTORY OF PRESENT ILLNESS: This is a 75-year-old female who presents to the ER, who states she is feeling some left-sided chest discomfort. She states it woke up out of her sleep last night. She states that it is a tightness pressure type feeling and it is constantly there. She does not feel like it radiates anywhere, and she did try to take 2 Tylenol 30 minutes prior to arrival with no relief of her symptoms. The patient states she has a history of cancer, which has metastasized everywhere. She states she has chronic dry cough, chronic shortness of breath, and she has chronic nausea. However, she did have 1 emesis today. She has had no fever or chills. No troubles with urination. No diarrhea or constipation. She states she has never had anything like this before. She states she was recently in the hospital and was just dismissed last Tuesday. Her states she has not been eating and drinking well and seems to be more weak than normal. They deny any other problems at this time. PAST MEDICAL HISTORY: Breast cancer with metastasis to the left lung, liver, lymph nodes, and brain. She has history of depression, DVT, cataracts, anemia, seizure disorder. She has a recent diagnosis of PE, CHF. PAST SURGICAL HISTORY: She has had surgeries on tonsil and adenoids, and she has had a vena cava filter placement. SOCIAL HISTORY: She quit smoking in 2007 but did smoke 2 packs a day for last 48 years. Denies any drug or alcohol use. REVIEW OF SYSTEMS: All systems reviewed by me were negative with the exception of those discussed in the HPI. PATIENT'S NAME: DEZ SALDAÑA [facility] AGE: 75 Y [address] ROOM: [place] [address] LOCATION: [facility] ADMIT DATE: 08/22/2016 ER/Outpatient Report DISCHARGE DATE: FAMILY PHYSICIAN: Ang Dickens MD ATTENDING PHYSICIAN: Lisa MCNALLY PHYSICAL EXAMINATION: VITAL SIGNS: Height 5 feet 3 inches stated, weight 58.5 kg taken, blood pressure is 98/60, pulse 110, respirations 20, temperature 99.2 degrees tympanically, saturations 86% to 93% on room air. We did place her on 1 L nasal cannula. GENERAL: An alert, calm, well-developed female, in no obvious distress. HEENT: Head: Normocephalic. She does display moist mucous membranes. Eyes: Pupils are equal and reactive to light. NECK: Supple. No lymphadenopathy. LUNGS: Diminished throughout. No wheezes or crackles heard. HEART: Regular rate and rhythm. ABDOMEN: Soft, nontender. She has good bowel sounds throughout. EXTREMITIES: No clubbing or cyanosis. She does have full range of motion of all limbs. SKIN: Warm, dry, and intact. LABORATORY DATA AND X-RAYS: CBC: White count is 10.6, hemoglobin is 9.6, ANC is 8.8, INR is 1.06. CMS: Sodium is 136, potassium 2.8, glucose 138. Liver enzymes: Alkaline phosphatase is 198, AST is 184, ALT is 100. Estimated GFR is greater than 60. Magnesium is 1.3. CPK is 19, CK-MB is less than 0.5. Troponin I is less than 0.040, proBNP is 513. EKG shows sinus tachycardia, ST junctional depression is nonspecific. Chest x-ray shows new interstitial opacity at the left costophrenic angle, pneumonia versus pulmonary infarct. We then did a CT per PE protocol, which shows high volume bilateral lower lung PE with left lower lobe pulmonary infarct, so worsening study than it was on August 05. IMPRESSION: 1. Pulmonary emboli, left lower lobe. 2. Hypokalemia. 3. Hypoxia. 4. Anemia. 5. Breast cancer with metastasis. ASSESSMENT AND PLAN: Discussed the patient's care with Dr. Kaiser. We did access the patient's port and did obtain 1 blood culture at this time. We did give her a 250 mL bolus of IV fluids and then ran fluids at 100 mL/h. The patient's blood pressure remained stable. The patient rested comfortably her entire stay. The patient's primary care physician is Dr. Dickens. I did call Dr. Claudio Howard who is on-call for [facility], and he would like me to call the hospitalist service to admit this patient. I spoke with Dr. Mcnally, the hospitalist prevention specialist, and he will be admitting the patient at this time. The patient and the patient's understand and agree with care. PATIENT'S NAME: DEZ SALDAÑA [facility] AGE: 75 Y [address] ROOM: [id number] [place] [id number] LOCATION: [facility] ADMIT DATE: 08/22/2016 ER/Outpatient Report DISCHARGE DATE: FAMILY PHYSICIAN: Ang Dickens MD ATTENDING PHYSICIAN: Lisa MCNALLY PREM LINK PA-C FOR MD ILENE RAINEY/linn /[id number] d: t: 08/26/16 1311, OUTPATIENT REPORT
--- NOTE | ~2016-08-22 | CON ---
PATIENT'S NAME: DEZ SALDAÑA [facility] AGE: 75 Y [address] ROOM: [place] [address] LOCATION: [facility] ADMIT DATE: 08/22/2016 Consultation DISCHARGE DATE: 08/26/2016 FAMILY PHYSICIAN: Ang Dickens MD ATTENDING PHYSICIAN: Uli Gonzalez DATE OF CONSULTATION: 08/24/2016 REFERRING PHYSICIAN: Carina Lainez MD PALLIATIVE MEDICINE CONSULT LOCATION: PCU room [facility]. REFERRING PROVIDER: Vandana Valadez MD. CHIEF COMPLAINT: Palliative care referral for goals of care conversation. HISTORY OF PRESENT ILLNESS: The patient is a 75-year-old female with a past medical history of metastatic breast cancer with mets to the liver and brain, status post chemo and radiation. She does have a recent history of seizures, who presented to the ER with severe left-sided chest pain. Of note, the patient was recently hospitalized and found to have small bilateral PEs. An IVC filter was placed, and she spent some time on our acute rehab unit before being discharged home on August 18, 2016. On the day of admission, the patient reported that she woke early in the morning and felt acute left-sided sharp pain that was associated with increased shortness of breath. Tylenol did not control this pain. Thus, she presented to the emergency room. A chest CT showed large volume bilateral PEs in the lower lung, worse on the left with a region of pulmonary infarct. The patient was started on a heparin drip as well as a Dilaudid ELECTRONIC DESIGN ENGINEER for pain control. Given her metastatic disease and complications, Palliative Care was consulted to assist with the patient and family support and goals of care conversation. PREVIOUS OPERATIONS: 1. Right-sided lung mass resection. 2. Fem-fem bypass. 3. Left-sided mastectomy. 4. Tonsillectomy. 5. Appendectomy. 6. Bilateral cataracts. 7. Heart catheterization. PATIENT'S NAME: DEZ SALDAÑA [facility] AGE: 75 Y [address] ROOM: [place] [address] LOCATION: [facility] ADMIT DATE: 08/22/2016 Consultation DISCHARGE DATE: 08/26/2016 FAMILY PHYSICIAN: Ang Dickens MD ATTENDING PHYSICIAN: Uli Gonzalez 8. Port placement. 9. IVC filter in July 2016. 10. TVH. PAST MEDICAL HISTORY: 1. History of lung cancer, status post resection. 2. Breast cancer with metastasis to liver and brain, status post chemo and radiation. 3. 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 4. Chronic nocturnal hypoxia. MEDICATIONS: Please see current MAR. ALLERGIES: NO KNOWN ALLERGIES. SOCIAL HISTORY: The patient is and lives with her just outside of [place]. She has a history of smoking. She quit in 2007. Does have occasional alcohol use. FAMILY HISTORY: The patient's father had a history of stomach cancer and her mother of old age. REVIEW OF SYSTEMS: GENERAL: Appetite is down significantly. reports that the patient has lost 10 pounds in the last week. She is only eating bites and sips. No recent fever, chills, or night sweats. Does complain of severe fatigue and severe weakness. HEENT: No changes in vision or hearing. Denies headache. RESPIRATORY: Positive for shortness of breath at rest with increases significantly with any activity. Positive for chronic cough. CARDIOVASCULAR: Complains of left-sided pleural pain. No palpitations. No peripheral edema. GASTROINTESTINAL: Does have some nausea. No vomiting. No diarrhea or constipation. GENITOURINARY: No dysuria, urinary frequency, or urgency. MUSCULOSKELETAL: No back or joint pain. NEUROLOGICAL: No numbness or tingling. No dizziness. No immediately recent seizures. INTEGUMENTARY: No rashes or open areas. PSYCHIATRIC: Denies feeling overtly depressed. Does have some anxiety related to situation. PATIENT'S NAME: DEZ SALDAÑA [facility] AGE: 75 Y [address] ROOM: [id number] [place] [id number] LOC[facility] ADMIT DATE: 08/22/2016 Consultation DISCHARGE DATE: 08/26/2016 FAMILY PHYSICIAN: Ang Dickens MD ATTENDING PHYSICIAN: Uli Gonzalez PHYSICAL EXAMINATION: VITAL SIGNS: Blood pressure 118/59, heart rate 82, temperature 97.6, respirations 14, O2 sats 98% on 2 L. GENERAL: Reveals an alert and oriented, though slightly drowsy, elderly white female, who is lying in the hospital bed, does not appear to be in any acute distress. HEENT: Normocephalic, atraumatic. She does have alopecia. Pupils are equal and reactive to light. Sclerae nonicteric. Conjunctivae are pink. Tongue and mucous membranes are dry. Dentition is adequate. CARDIOVASCULAR: Heart tones are regular rate and rhythm. I am not able to a murmur. RESPIRATORY: Respirations are regular and nonlabored at rest. Lung sounds are coarse bilaterally. GASTROINTESTINAL: Abdomen is soft, nontender. Bowel sounds are present. MUSCULOSKELETAL: No significant joint deformities. Peripheral pulses are strong and equal bilaterally. No clubbing, cyanosis, or edema. SKIN: Warm and dry. No unusual lesions or rashes. NEUROLOGICAL: Grossly intact. IMPRESSION AND PLAN: 1. Left-sided chest, pleural pain. Hydromorphone ELECTRONIC DESIGN ENGINEER appears to be controlling this quite well. 2. Poor appetite. The patient is very adamant that she does not want any tube feeding or artificial nutritions that would prolong things. 3. Weakness. The patient recently discharged from our acute inpatient rehab unit and reports that therapy is quite taxing on her. 4. Fatigue. 5. Code status. The patient is a full code. She does have 5 wishes. Briefly discussed with her code status, but part way going through the conversation, the patient begins to get quite sleepy and has a difficult time fully tracking the conversation. Introduced the role of palliative care to the patient and her for symptom management and goals of care conversation. Visited with them about quality of life and goals. The patient states #1: Her goal is to stay out of the hospital. #2. Her goal is to be able to go camping and fishing yet this summer. I was able to visit with the patient about her symptoms and medications we can use to help control her symptoms, especially when she goes home, but the patient does become drowsy part way going through the conversation. At which point, the pulls me out of the room and asks about hospice services at home as he states this is something he feels is going to be necessary sooner than later. Provided education to him on hospice services at home and what they would be able to provide. Discussed the fact that even with hospice services, he would be a primary caregiver. He reports that their daughter is on her way home from [place] and will plan to stay as long as PATIENT'S NAME: DEZ SALDAÑA E [facility] AGE: 75 Y [address] ROOM: [id number] [place], [place] [address] LOCATION: [facility] ADMIT DATE: 08/22/2016 Consultation DISCHARGE DATE: 08/26/2016 FAMILY PHYSICIAN: Ang Dickens MD ATTENDING PHYSICIAN: Uli Gonzalez needed to help take care of her. Discussed his fear of bringing up hospice with the patient as he does not want her to feel like they are giving up on her, but that he does not want her to suffer. Provided education to him on ways of presenting hospice to her. Offered to have further conversations in the next day or two to assist with this difficult conversation. During our conversation though the patient did tell me that quality of life is very important to her, and at this point, it is not very good anymore and that she knows the end is nearing. We will plan to follow up with this patient and family and assist with further goals of care conversation following a visit from Oncology as well. A total of 60 minutes was spent providing education and counseling to this patient and her family, greater than 50% of this time was spent providing education and counseling for this patient and family. Thank you for allowing me to assist the patient and family. DICK MARTINEZ, IQRA FOR ELY GLEASON MD DLS/modl /[id number] CC: Vandana Valadez MD d: 08/31/166 t: 09/01/16 1316, CONSULTATION REPORT
--- NOTE | ~2016-08-22 | HP ---
PATIENT'S NAME: DEZ SALDAÑA [facility] AGE: 75 Y [address] ROOM: [place] [address] LOCATION: [facility] ADMIT DATE: 08/22/2016 History & Physical DISCHARGE DATE: FAMILY PHYSICIAN: Ang Dickens MD ATTENDING PHYSICIAN: Lisa WALLACE DATE OF SERVICE: CHIEF COMPLAINT: Left-sided chest pain. HISTORY OF PRESENT ILLNESS: The patient is a 75-year-old female with a past medical history of lung cancer status post resection, breast cancer with METS to liver and brain status post lobectomy, radiation, and chemo and recent history of seizure, who presents here with left-sided chest pain. The patient reports that she got up early this morning and felt acute left-sided sharp pain. She rates the pain 8/10, nonradiating and was associated with shortness of breath. He also reports of chest pain that worsened when she took deep breath in. The patient was brought to our emergency department for evaluation. The patient was recently admitted to our hospital and was found to have bilateral small PE and was placed on IVC filter and was discharged to our acute rehab and was discharged from our acute rehab on August 18, 2016. The patient during that admission was noted to be require oxygen at nighttime and was started on oxygen at nighttime. The patient reports that since her discharge from acute rehab, she still feels fatigue and has poor appetite and has lost some weight. She also reports ongoing nausea without mention of vomiting. She is on Reglan and scopolamine for her nausea and reports that she has lost her appetite and reports her foot taste different. She denies fever, cough, abdominal pain, diarrhea, bloody stool, nosebleed, fall, and recent seizures since discharge. MEDICAL HISTORY: 1. Breast cancer. 2. METS to liver and brain status post lobectomy and radiation and also chemo. 3. Lung cancer status post surgery. 4. Seizure. 5. Chronic hypoxia. SURGICAL HISTORY: 1. Lung mass resection right-sided. 2. Fem-fem bypass. 3. Left-sided mastectomy. PATIENT'S NAME: DEZ SALDAÑA [facility] AGE: 75 Y [address] ROOM: [place] [address] LOCATION: [facility]ICU ADMIT DATE: 08/22/2016 History & Physical DISCHARGE DATE: FAMILY PHYSICIAN: Ang Dickens MD ATTENDING PHYSICIAN: Lisa WALLACE The patient reports father has a history of stomach cancer and reports that her mother of old age. SOCIAL HISTORY: The patient lives with and has a history of smoking, but stopped smoking in 2007 and reports of occasional alcohol use. CURRENT MEDICATIONS: See medication being reconciled. ALLERGIES: NO KNOWN DRUG ALLERGIES. REVIEW OF SYSTEMS: All systems have been reviewed and are negative except for what mentioned in the HPI. PHYSICAL EXAMINATION: VITAL SIGNS: Afebrile, blood pressure 101/57, heart rate of 81, respiratory rate 16, and saturating 99% on 2 L. GENERAL APPEARANCE: The patient is alert and awake, in no acute distress. HEAD: Normocephalic, atraumatic. EYES: Extraocular muscle intact. Sclerae nonicteric. ORAL CAVITY: Dry oral mucosa. CHEST: Clear to auscultation bilaterally. The patient has a right-sided port. Clear, dry, and intact. No signs of inflammation, erythema, or discharge around the port. NOSE: No nasal discharge. EAR: No ear discharge. HEART: Regularly irregular. No murmurs, rubs, or gallops. ABDOMEN: Soft, nontender, and nondistended. LOWER EXTREMITY: No edema. Distal pulses present. SKIN: Warm to touch. MUSCULOSKELETAL: Range of motion intact. No obvious effusion. INFORMATION SYSTEMS TECHNICIAN: Alert and oriented x3. Motor and sensory grossly intact. LABORATORY DATA: White blood cell count of 10.6, hemoglobin 9.6, platelet of 201, potassium 2.8, creatinine of 0.8, magnesium was 1.3, alkaline phosphatase of 198, ALT of 100, AST of 184. EKG shows sinus tachy. ASSESSMENT AND PLAN: 1. The patient is a 75-year-old female with past medical history of breast PATIENT'S NAME: DEZ SALDAÑA [facility] AGE: 75 Y [address] [id number] [address] LOCATION: [facility] ADMIT DATE: 08/22/2016 History & Physical DISCHARGE DATE: FAMILY PHYSICIAN: Ang Dickens MD ATTENDING PHYSICIAN: Lisa WALLACE cancer with METS to lungs and liver, distant history of lung cancer, and recent history of PE on IVC filter, who presents here with chest pain and worsening of shortness of breath. CT chest shows pulmonary artery vasculature shows large volume, bilateral PE in the lower lungs especially and worse on the left region of the pulmonary infarct. The volume and extent of PA has progressed or recurred compared to last prior study. Etiology most likely secondary to progression of old PE. We will start the patient on heparin drip. The patient initially was noted to have some labile blood pressure and was given IV fluid, now normotensive. Vital signs stable. She is saturating 99% on 2 L. We will continue heparin drip. We will acquire echocardiogram to further investigate RV strain. EKG shows sinus tachy with possible mild ST depression on V2 and V3, possible suggestion of RV strain. We will acquire echo to further investigate. 2. 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 and phenytoin. We will acquire phenytoin level. 3. History of breast cancer with METS to brain and liver, status post radiation and chemo to consult oncology in the morning. 4. Anemia. The patient has hemoglobin of 9.6. On day of discharge, hemoglobin is 11.7, and usually the patient's hemoglobin range between 8- 11. No signs of bleeding. Denies history of GI bleed, dark stool, or hematemesis. The patient does not have any signs of acute blood loss. We will acquire iron workup. Currently, the patient on heparin drip. Discussed about risk and benefit of heparin drip especially on the face of unknown anemia. The patient understands the risk and benefit. To continue heparin drip. We will follow the patient closely clinically. Since the patient is on Decadron and also on heparin, we will have start the patient on Protonix 40 mg daily. 5. Severe protein-calorie malnutrition etiology secondary to underlying malignancy. We will acquire dietitian consult. 6. Hypokalemia and hypomagnesemia. We will supplement potassium and magnesium. I have personally reviewed the patient's medical record including but not limited to blood work and radiology report. Total time spent with the patient is greater than 60 minutes more than 50% of the time spent in direct patient care and patient consultation. Case was reviewed with Dr. Kaiser. We will admit the patient in PCU. Continue heparin drip for progression of bilateral PE. The patient will try to contact Dr. Dickens today if not, to contact Dr. Dickens so that the patient can be transferred to his care if possible. RODRIGO FRANCISCO MD PATIENT'S NAME: DEZ SALDAÑA [facility] AGE: 75 Y [address] ROOM: [place] [address] LOCATION: [facility] ADMIT DATE: 08/22/2016 History & Physical DISCHARGE DATE: FAMILY PHYSICIAN: Ang Dickens MD ATTENDING PHYSICIAN: Lisa WALLACE/linn /[id number] D: [id number] T: [id number] HISTORY & PHYSICAL
--- NOTE | ~2016-08-22 | ECHO ---
Transthoracic Echocardiography Report (TTE) Demographics Patient Name DEZ SALDAÑA Date of Study 08/23/2016 Patient Number [id number] Visit Number [id number] Date of 1940 Room Number G6335 Accession Number [id number] Gender Female Age 75 year(s) Referring Chrissie Krishna Support Merchandiser Rosina Sol RVT, Physician LOC Physician Interpreting Linda Chavez Registered Massage Therapist Physician MD Supervising Ordering Physician Uli Gonzalez MD/MLP Nurse Stress Plastic Sewer Conclusions Contractility Score Summary Normal Left Ventricular contractility was noted. Summary Technically difficult exam. Exam done with patient supine. Definity used to better delineate endocardial borders. The estimated left ventricular ejection fraction is 55%.The left ventricle is normal in size.LV wall thickness and WM are difficult to comment on. Mild mitral annular calcification. Mild tricuspid regurgitation by color Doppler. There is mild pulmonary hypertension. The pulmonary pressure (RVSP) is 41 mmHg. Procedure Type of Study TTE procedure:2D Echocardiogram, Echo with Contrast. Procedure Date Date: 08/23/2016 Start: 08:42 AM Study Location: Inpatient Portable Technical Quality: Fair Indications:Pulmonary embolus. Appropriate Use Criteria: 8 Patient Status: Routine Contrast Medium: Definity. Amount - 2 ml Rhythm: NSR HR: 86 bpm BP: 148/69 mmHg Allergies - No known allergies. M-Mode/2D Measurements LV Diastolic Dimension: 3.38 cm LV Systolic Dimension: 2.21 cm LV Septum Diastolic: 0.94 cm LV PW Diastolic: 0.81 cm AO Root Dimension: 2.7 cm Cardiac Output: 4.39 l/min AV Cusp Separation: 1.7 cm LA volume: 55 ml LVOT: 1.7 cm LVOT VTI: 22.5 cm TAPSE: 2.26 cm LV Stroke volume: 51.04 ml Doppler Measurements AV Peak Velocity: 1.9 m/s MV Peak E-Wave: 1.23 m/s AV Peak Gradient: 14.44 mmHg MV Peak A-Wave: 1.3 m/s AV Mean Gradient: 8 mmHg MV E/A Ratio: 0.95 LVOT Peak Velocity: 1.19 m/s MV P1/2t: 73 msec TR Gradient:36 mmHg PV Peak Velocity: 1.09 m/s Estimated RAP:5 mmHg PV Peak Gradient: 4.75 mmHg Estimated RVSP: 41 mmHg Estimated PASP: 41 mmHg E' Septal Velocity: 0.04 m/s A' Septal Velocity: 0.11 m/s E' Lateral Velocity: 0.08 m/s A' Lateral Velocity: 0.11 m/s Findings Left Ventricle The left ventricle is normal in size . Diastolic assessment reveals Grade I diastolic dysfunction. Right Ventricle Normal right ventricle structure and function. Left Atrium Normal left atrial size. Right Atrium Normal right atrial size. IVC measures 1.14 cm with inspiratory collapse. Mitral Valve Trivial mitral regurgitation by color Doppler. Mild mitral annular calcification. Aortic Valve The aortic valve is mildly sclerotic. Tricuspid Valve Mild tricuspid regurgitation by color Doppler. There is mild pulmonary hypertension. The pulmonary pressure (RVSP) is 41 mmHg. Pulmonic Valve Normal pulmonic valve structure and function. Pericardial Effusion No evidence of pericardial effusion. Miscellaneous Visualized portions of the aortic root and ascending aorta appear normal in size. Pleural Effusion No evidence of pleural effusion. Contractility Score LV regional wall motion:(0-Non visualized 1-Normal 2-Hypokinesis 3-Akinesis 4-Dyskinesis 5-Aneurysm) Signature dtt: Kathy Mckeon dtd: 08/23/16 0842 Physician Self Edit
--- NOTE | ~2016-08-22 | DS ---
PATIENT'S NAME: DEZ SALDAÑA [facility] AGE: 75 Y [address] ROOM: [id number] [place], [place] [address] LOCATION: GPCU ADMIT DATE: 08/22/2016 Discharge Summary DISCHARGE DATE: 08/26/2016 FAMILY PHYSICIAN: Ang Dickens MD ATTENDING PHYSICIAN: Uli Gonzalez FINAL DIAGNOSES: 1. Progressive/recurrent pulmonary emboli with pulmonary infarction. 2. Acute hypoxic respiratory failure. 3. Stage IV breast cancer. 4. 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 5. Pleuritic chest pain. 6. Hypokalemia. Please see the history and physical dictated by Dr. Mcnally for details of admission. LABORATORY DATA: On admission, sodium 136, most prior to discharge 138; potassium on admission 2.8, this was replaced and most prior to discharge 3.9; BUN on admission was 21, discharge 11; creatinine on admission was 0.8, discharge 0.3. Alkaline phosphatase on admission was 198, AST 184, and ALT 100. Magnesium 1.3. Cardiac enzymes were negative. Magnesium most prior to discharge was 1.6. Pre-albumin was 9. Dilantin level on admission was 5.3, most prior to discharge 16.3. White blood cell count on admission was 13.5, hemoglobin 7.7, hematocrit 23.3, and platelet count 216. Pro-time 12. INR 1.4. Blood culture from admission was negative. RADIOLOGIC DATA: Chest x-ray on admission showed a new opacity in the left costophrenic sulcus. Spiral cut CT scan with PE protocol showed dense infiltrate in the left lower lobe, that was consistent with a pulmonary infarction. There were large volume bilateral pulmonary emboli, worse in the left, in the area where there was felt to have an infarction. It was felt that this had progressed. Cardiovascular studies: Venous Doppler did show that there was a clot in the right common femoral and in the left common femoral, superficial femoral, popliteal, and calf veins. HOSPITAL COURSE: The patient was admitted to the hospital, into the intensive care unit with acute hypoxic respiratory failure. She had just recently been discharged from rehab after hospitalization for pulmonary emboli, at which time an IVC filter was placed. She had been doing okay at home, but began having increased shortness of breath and developed severe left-sided chest pain within 36 hours of admission. She was brought in, CT scan was done and did show that she had worsening pulmonary emboli. She was started on a heparin drip. She was having severe pain, so therefore she was put on a PATIENT'S NAME: DEZ SALDAÑA [facility] AGE: 75 Y [address] ROOM: [place] [id number] LOCATION: GPCU ADMIT DATE: 08/22/2016 Discharge Summary DISCHARGE DATE: 08/26/2016 FAMILY PHYSICIAN: Ang Dickens MD ATTENDING PHYSICIAN: Uli Gonzalez on discussion with Dr. Soni regarding her hypercoagulable state secondary to her cancer. He did review her records from the office and really did not feel that we did have a lot of options in terms of treatment. The decision was made to treat her with Lovenox for the clot. The palliative care nurses were asked to see the patient because of the overall poor prognosis from her breast cancer. The patient and her did speak at length and they did decide that they would like to go hospice. Arrangements were made for the patient to go home on hospice. It was felt that she needed to continue on her Lovenox because it did serve as a comfort measure for her. She is discharged to home on hospice. MEDICATIONS: 1. Decadron 2 mg 4 times daily. 2. Dilantin 100 mg twice daily and 300 mg at bedtime. 3. Lovenox 60 mg subcutaneously twice daily. Hospice was going to see the patient today in her home. RENU BELCHER MD LAW/modl /[id number] CC: MD Carina Flores MD George K Bascom, MD d: 08/27/16 0202 t: 08/27/16 1834, DISCHARGE SUMMARY
--- NOTE | ~2016-08-22 | ENPV ---
Vascular Lower Extremities DVT Study Procedure Demographics Patient Name DEZ SALDAÑA Date of Study 08/23/2016 Patient Number [id number] Gender Female Date of 1940 Age 75 Visit Number [id number] Height 63 Accession Number [id number] Weight 128 Referring Rory Weir MD Interpreting Murphy Schaefre MD Physician Physician Physician Ordering Physician Rory Weir Thickener Operator Blacking Machine Operator Matthias Krishna BS, RT Conclusions Summary There is sub-acute deep vein thrombosis in the right common femoral vein(s). Rouleaux flow right lower extremity. There is sub-acute deep vein thrombosis in the left common femoral, superficial femoral, popliteal, trunk, and calf vein(s). Procedure Type of Study: Veins:Lower Extremities DVT Study, Venous Duplex Lower Extremity Bilateral. Indications for Study:DVT, History of and Pulmonary embolism. Appropriate Use Criteria:7 Allergies - No known allergies. Patient Status:Routine. Study Location:Inpatient Portable. Technical Quality:Adequate visualization. Velocities are measured in cm/s ; Diameters are measured in cm Right Lower Extremities DVT Study Measurements Right 2D and Doppler Measurements + + + + +------+------+ + !Location !Visualized!Compressibility!Thrombosis!Signal!Reflux!Reflux ! ! ! ! ! ! ! !(sec) ! + + + + +------+------+ + !GSV Thigh !Yes !Yes !None !Phasic!No ! ! + + + + +------+------+ + !Common !Yes ! !Sub-acute !Phasic! ! ! !Femoral ! ! ! ! ! ! ! + + + + +------+------+ + !Prox !Yes !Yes !None !Phasic!No ! ! !Femoral ! ! ! ! ! ! ! + + + + +------+------+ + !Mid Femoral!Yes !Yes !None !Phasic!No ! ! + + + + +------+------+ + !Dist !Yes !Yes !None !Phasic!No ! ! !Femoral ! ! ! ! ! ! ! + + + + +------+------+ + !Popliteal !Yes !Yes !None !Phasic!No ! ! + + + + +------+------+ + !Gastroc !Yes !Yes !None !Phasic!No ! ! + + + + +------+------+ + !PTV !Yes !Yes !None !Phasic!No ! ! + + + + +------+------+ + !Peroneal !Yes !Yes !None !Phasic!No ! ! + + + + +------+------+ + Left Lower Extremities DVT Study Measurements Left 2D and Doppler Measurements +---------+ + + + +------+--------+ !Location !Visualized!Compressibility!Thrombosis!Signal !Reflux!Reflux ! ! ! ! ! ! ! !(sec) ! +---------+ + + + +------+--------+ !GSV Thigh!Yes !Yes !None !Phasic ! ! ! +---------+ + + + +------+--------+ !Common !Yes !No !Sub-acute !Phasic ! ! ! !Femoral ! ! ! ! ! ! ! +---------+ + + + +------+--------+ !Prox !Yes !No !Sub-acute !Diminished! ! ! !Femoral ! ! ! ! ! ! ! +---------+ + + + +------+--------+ !Mid !Yes !No !Sub-acute !Diminished! ! ! !Femoral ! ! ! ! ! ! ! +---------+ + + + +------+--------+ !Dist !Yes !No !Sub-acute !Diminished! ! ! !Femoral ! ! ! ! ! ! ! +---------+ + + + +------+--------+ !Popliteal!Yes !No !Sub-acute !Diminished! ! ! +---------+ + + + +------+--------+ !Gastroc !Yes ! ! ! ! ! ! +---------+ + + + +------+--------+ !PTV !Yes !No !Sub-acute ! ! ! ! +---------+ + + + +------+--------+ !Peroneal !Yes !No !Sub-acute ! ! ! ! +---------+ + + + +------+--------+ Signature dtt: CHIDI GRANADOS dtselam: 08/23/16 1129 Physician Self Edit
[~2016-08-22 11:55] MED LIST changes: +DILANTIN100 MG; +EFFEXOR75 MG PO; +LASIX20 MG PO; +MEGACE SUSP40 MG/ML PO; +OXYGEN M-15 INH; +PROTONIX40 MG PO; +REGLAN5 MG PO; +TRANSDERM SCOP1.5 MG TRANS
[2016-08-22 12:21] LABS: BASOPHIL % 0.3 %; EOSINOPHIL # 0.1 K/uL (0.0-0.5); EOSINOPHIL % 1.3 %; HEMATOCRIT 28.7 % (33.0-46.0); HEMOGLOBIN 9.6 g/dL (10.0-15.0); IMMATURE GRANULOCYTE # 0.1 K/uL (0.0-0.3); IMMATURE GRANULOCYTE % 0.8 %; LYMPHOCYTE # 0.7 K/uL (0.8-4.0); LYMPHOCYTE % 6.4 %; MCH 30.8 pg (27.0-34.0); MCHC 33.4 gm/dL (32.0-36.5); MONOCYTE # 0.9 K/uL (0.0-1.0); MONOCYTE % 8.6 %; MPV 9.4 fl (9.4-12.4); NEUTROPHIL # (ANC) 8.8 K/uL (1.8-7.8); NEUTROPHIL % 82.6 %; NRBC % 0 /100WBC (0-0.00); PLATELET COUNT 201 K/uL (150-450); RBC 3.12 M/uL (3.50-5.50); RDW-CV 15.5 % (11.9-14.6); WBC 10.6 K/uL (4.0-11.0)
[2016-08-22 12:30] LABS: INR - (THERAPEUTIC) 1.06 (0.92-1.07); PROTIME 11.1 SECONDS (9.8-11.4); PTT 25 SECONDS (25-32)
[2016-08-22 12:41] LABS: ALBUMIN 2.3 gm/dL (3.5-5.0); ALK PHOS 198 IU/L (33-138); ALT 100 IU/L (12-78); AST 184 IU/L (10-40); BLOOD UREA NITROGEN 21 mg/dL (6-24); CALCIUM 7.8 mg/dL (8.5-10.5); CHLORIDE 94 mMol/L (96-110); CO2 30 mMol/L (22-32); CPK 19 IU/L (21-215); CREATININE 0.8 mg/dL (0.5-1.1); ESTIMATED GFR (MDRD EQUATION) > 60; MAGNESIUM 1.3 mg/dL (1.8-2.6); SODIUM 136 mMol/L (135-145); TOTAL BILIRUBIN 0.5 mg/dL (0.0-1.5)
[2016-08-22 12:49] LABS: ANION GAP 14.8 (10.0-19.0); POTASSIUM 2.8 mMol/L (3.7-5.1)
[2016-08-22 16:41] LABS: BASOPHIL % 0.2 %; EOSINOPHIL # 0.1 K/uL (0.0-0.5); HEMATOCRIT 23.3 % (33.0-46.0); HEMOGLOBIN 7.7 g/dL (10.0-15.0); IMMATURE GRANULOCYTE # 0.1 K/uL (0.0-0.3); LYMPHOCYTE % 7.5 %; MCH 30.3 pg (27.0-34.0); MCV 91.7 fl (83.0-98.0); MONOCYTE # 1.1 K/uL (0.0-1.0); MONOCYTE % 8.1 %; MPV 9.6 fl (9.4-12.4); NEUTROPHIL # (ANC) 11.1 K/uL (1.8-7.8); NEUTROPHIL % 82.2 %; NRBC % 0 /100WBC (0-0.00); PLATELET COUNT 216 K/uL (150-450); RBC 2.54 M/uL (3.50-5.50); RDW-CV 15.4 % (11.9-14.6); WBC 13.5 K/uL (4.0-11.0)
[2016-08-22 16:52] LABS: INR - (THERAPEUTIC) 1.14 (0.92-1.07)
--- NOTE | 2016-08-22 17:36 | NUR ---
Significant Event:Lives at home with in [place] and was dismissed from [facility] 3 days ago after a stay for ruben PE's. Patient started having left chest pain that was sharp and dull at the same time and took tylenol and it did not help. then brought her to the ER and her chest CT showed, "worse PE than previous L) chest PE from previous visit." Patient arrived to the floor per cart and was slid to the bed by RN's. She had 1L O2/NC and Normal Saline at 100 ml/h and Heparin IV infusing in her right chest port ?@ 900 units/h. Her last radiation treatment was July 08. She is currently having left chest pain. IV morphine is given for the pain.
--- NOTE | 2016-08-22 17:42 | NUR ---
Significant Event: A/O X 3. Heart rate in the 90's. SBP in 120's. C/O left chest pain, 1 mg IV Morphine given. IV Potassium and Magnesium started. NS and Heparin infusing. Last PTTHP @ 1615 was 97, Heparin gtt was decreased to 700 units/h, next is at 2316. PO Potassium also given. is updated at the bedside. Will get AD in AM when chart max can be accessed. R) chest port is patent. O2 97% @ 1L/NC. Follow up:assist with ambulation due to unsteady gait.
--- NOTE | 2016-08-23 04:44 | NUR ---
Significant Event: Patient alert and oriented. Up with standby assist. Oxygen increased to 2L via nasal cannula. Percocet given x3 last at 0350 with relief noted. Aqua K pad to left chest for pain management. Heparin drip continues. Pleasant and cooperative with cares. Follow up: continue to monitor
[2016-08-23 05:33] LABS: BASOPHIL % 0.2 %; EOSINOPHIL # 0.1 K/uL (0.0-0.5); HEMATOCRIT 27.2 % (33.0-46.0); HEMOGLOBIN 8.9 g/dL (10.0-15.0); IMMATURE GRANULOCYTE # 0.1 K/uL (0.0-0.3); IMMATURE GRANULOCYTE % 0.8 %; LYMPHOCYTE # 0.8 K/uL (0.8-4.0); LYMPHOCYTE % 5.9 %; MCH 30.5 pg (27.0-34.0); MCHC 32.7 gm/dL (32.0-36.5); MCV 93.2 fl (83.0-98.0); MONOCYTE # 1.1 K/uL (0.0-1.0); MONOCYTE % 8.2 %; MPV 9.4 fl (9.4-12.4); NEUTROPHIL # (ANC) 11.3 K/uL (1.8-7.8); NEUTROPHIL % 83.9 %; NRBC % 0 /100WBC (0-0.00); PLATELET COUNT 222 K/uL (150-450); RBC 2.92 M/uL (3.50-5.50); RDW-CV 15.8 % (11.9-14.6); WBC 13.4 K/uL (4.0-11.0)
[2016-08-23 05:57] LABS: ALBUMIN 2.1 gm/dL (3.5-5.0); ALK PHOS 176 IU/L (33-138); ALT 87 IU/L (12-78); AST 96 IU/L (10-40); BLOOD UREA NITROGEN 18 mg/dL (6-24); CALCIUM 8.1 mg/dL (8.5-10.5); CHLORIDE 101 mMol/L (96-110); CO2 29 mMol/L (22-32); CREATININE 0.6 mg/dL (0.5-1.1); ESTIMATED GFR (MDRD EQUATION) > 60; SODIUM 137 mMol/L (135-145); TOTAL BILIRUBIN 0.5 mg/dL (0.0-1.5); TOTAL PROTEIN 5.6 g/dL (6.0-8.4)
[2016-08-23] MEDS ORDERED: IMDUR30 MG PO (10:55)
[2016-08-23] MEDS ORDERED: FLONASE 50 MCG/16 GM NOSE (10:56)
--- NOTE | 2016-08-23 12:55 | NUR ---
Introduced self and role of care management to patient. She is familiar with me from her last stay. She states she had been home from [facility] for 3 days and was doing well. She states she was able to do most if her ADL's with her husbands help. She is hoping to be able to return home on discharge. She denies any needs at this time. Will continue to follow.
--- NOTE | 2016-08-23 16:16 | NUR ---
Significant Event: PT A&O x3, drowsy/forgetful at times. VSS, O2 at 2L per nasal cannula. Dilaudid ENVIRONMENTAL MANAGER started this shift for lung pain, did have continuous dose but is now just a demand dose. Trevizo placed. Minimal appetite. Kpad to chest for lung pain. R)chest port accessed. Heparin running at 900units/hr, next ptthp at 1900. PT ambulates with 1 assist and gait belt. Hemet[place] all stools. Follow up:
[2016-08-23 16:40] LABS: HEMATOCRIT 27.5 % (33.0-46.0)
[2016-08-24 02:44] LABS: HEMATOCRIT 26.6 % (33.0-46.0); HEMOGLOBIN 8.8 g/dL (10.0-15.0)
[2016-08-24 03:01] LABS: ANION GAP 11.2 (10.0-19.0); BLOOD UREA NITROGEN 16 mg/dL (6-24); CALCIUM 8.1 mg/dL (8.5-10.5); CHLORIDE 102 mMol/L (96-110); CO2 26 mMol/L (22-32); CREATININE 0.4 mg/dL (0.5-1.1); ESTIMATED GFR (MDRD EQUATION) > 60; MAGNESIUM 1.8 mg/dL (1.8-2.6); PHOSPHORUS 2.7 mg/dL (2.5-4.9); POTASSIUM 4.2 mMol/L (3.7-5.1); SODIUM 135 mMol/L (135-145)
[2016-08-24 03:09] LABS: ALBUMIN 1.9 gm/dL (3.5-5.0)
--- NOTE | 2016-08-24 04:41 | NUR ---
Significant Event:A/Ox3 can be forgetful at times or make odd statements. Afebrile. RR 14-28 ETCO2 25-34. SBP 118-153. Dilaudid SUPERVISOR FIBER LOCKING demand only 0.1mg with 10 minute lockout. 3 demands and 2 delivered. Patient likes to have k-pad to left chest for comfort/pain. Trevizo to DD with minimal output of 300ml. Transfers 1 assist, weak. Exp. wheezes and cough noted on last assessment. Received order for mucinex bid/prn will give dose prior to shift change. Phenytion critical high this morning, will hold AM dose and let Day shift decide if they want to hold noon dose. Follow up:Continue to monitor status. ?Pallative Consult.
--- NOTE | 2016-08-24 15:45 | NUR ---
Significant Event: pt up wyatt with therapy 2 asst, weaker today. 2liters 02. Heparin dcd, lovenox started. Percocetx1 tab for pain. Pt not eating but does eat crackers. Pt family talks to paliative care, dr Soni to talk also today with family about hospice. Follow up:
[2016-08-25 04:10] LABS: ALBUMIN 1.8 gm/dL (3.5-5.0); ANION GAP 11.9 (10.0-19.0); BLOOD UREA NITROGEN 11 mg/dL (6-24); CALCIUM 8.4 mg/dL (8.5-10.5); CHLORIDE 104 mMol/L (96-110); CO2 26 mMol/L (22-32); CREATININE 0.3 mg/dL (0.5-1.1); ESTIMATED GFR (MDRD EQUATION) > 60; HEMATOCRIT 25.2 % (33.0-46.0); MAGNESIUM 1.6 mg/dL (1.8-2.6); PHOSPHORUS 3.1 mg/dL (2.5-4.9); POTASSIUM 3.9 mMol/L (3.7-5.1); SODIUM 138 mMol/L (135-145)
--- NOTE | 2016-08-25 05:28 | NUR ---
Significant Event: A/O, VSS on 2L O2, afebrile, constant pain to L)side chest, kpad helping, Diluadid ceramic tile setter demand only, Percocet x1 last night, patient ate some jello and milk for supper, Mucinex given, NS at 75ml/hr, urbina had 600 out, daughter at bedside Follow up: continue with patient and family goals of care, possibly home soon
--- NOTE | 2016-08-25 16:47 | NUR ---
Significant Event: A/O. VSS on 1L/NC. DIRECTOR CARDIOLOGY dc'd at 1500. PO dilaudid ordered. Up with 1 assist, very SOB with minimal activity. Trevizo dc'd at 1530. Family at bedside Follow up: home tomorrow with hospice.
--- NOTE | 2016-08-26 04:29 | NUR ---
Patient A/Ox3. VSS on 3L and Cpap at HS. One assist with walker. Lungs clear/diminished/slightly course at times. Bowel sounds present. Chest tube to RT chest, dressing CDI, 375ml out. Rt side of abdomen edema. No complaints. IV to bilateral hands saline locked. Continue to monitor Chest tube.
--- NOTE | 2016-08-26 04:33 | NUR ---
Patient A/Ox3. VSS on 1-2L NC. Up one assist with walker. Lungs wheezing, harsh cough, tesslon pearls ordered. Bowel sounds present. Port Rt upper chest saline locked. Percocet and dilaudid PO given for general discomfort, relief noted. Daughter at bedside. Home today
[2016-08-26] MEDS ORDERED: LOVENOX 6060 MG/0.6 SUB-Q (10:43)
--- NOTE | 2016-08-26 12:05 | NUR ---
Patient dismissed to home with hospice. Daughter and very involved with planning. All deny question or concern of dismissal. Port deaccessed per protocol. Courtesy packet sent for hospice nurses.
--- NOTE | 2016-08-26 12:06 | NUR ---
Discharge orders faxed to [facility].
== END 2016-08-26 12:00 | disposition disaster alternative care site (69) | DRG 175 ==
LOC: GMED 11:55 → GICU 15:03 → GPCU 15:03 → GICU 17:25 → GPCU 08-23 17:04
PROVIDERS: Internal Medicine; Internal Medicine Hematology & Oncology; Physician Assistant Medical; ADMIT Internal Medicine
DX: I26.99 Other pulmonary embolism without acute cor pulmonale (principal); J96.01 Acute respiratory failure with hypoxia; E43 Unspecified severe protein-calorie malnutrition; C78.7 Secondary malignant neoplasm of liver and intrahepatic bile duct; C78.00 Secondary malignant neoplasm of unspecified lung; D68.59 Other primary thrombophilia; E83.42 Hypomagnesemia; I82.493 Acute embolism and thrombosis of other specified deep vein of lower extremity, bilateral; Z51.5 Encounter for palliative care; Z66 Do not resuscitate; C50.919 Malignant neoplasm of unspecified site of unspecified female breast; E87.6 Hypokalemia; K59.09 Other constipation; R56.9 Unspecified convulsions
CPT/HCPCS: C8929; J1170; J1642; J1644; J1650; J2270; J2405; J3475; J3480; J7030; J7040; J7050; Q2009; Q9957; Q9967